=== PATIENT | female | born 1960 | race Two or more races ===

== ENCOUNTER 2018-12-06 18:27 | Emergency (ER) | payer MEDICAID ==
[~2018-12-06] VITALS: Ht 172.7 cm; Wt 78.0 kg
[2018-12-06] MEDS ORDERED: MORPHINE SULFATE 4 MG/ML CPJ (NOT FOR IM USE) IV STA (19:55)
[2018-12-06] MEDS ORDERED: SODIUM CHLORIDE 0.9% 1,000 ML IV ONE (19:55)
[2018-12-06] MEDS ORDERED: ONDANSETRON HCL 4MG/2ML INJ IV STA (19:55)
[2018-12-06 20:40] LABS: BASOPHILS % 0.1 % (0.0-2.0); EOSINOPHILS % 0.6 % (0.0-5.0); HEMATOCRIT. 38.8 % (36.0-48.0); HEMOGLOBIN. 13.6 g/dL (12.0-16.0); MEAN CORPUSCULAR HEMOGLOBIN 30.2 pg (28.0-32.0); MEAN CORPUSCULAR VOLUME 86.3 fL (81.0-99.0); MEAN PLATELET VOLUME 8.1 fl (7.4-10.4); MONOCYTES % 4.6 % (2.0-8.0); NEUTROPHILS % 85.7 % (40.0-76.0); PLATELET 175 x1000/uL (130-400); RED CELL DISTRIBUTION WIDTH 14.3 % (11.6-14.6)
[2018-12-06 20:45] LABS: CHLORIDE 106 mEq/L (98-107)
[2018-12-06 20:52] LABS: PROTHROMBIN TIME 10.6 sec (9.6-11.0)
[2018-12-06] MEDS ORDERED: IOHEXOL-300 100 ML BOTTLE ONE (21:44)
[2018-12-07 00:32] LABS: CLARITY URINE CLEAR (CLEAR); COLOR URINE YELLOW (YELLOW); KETONES URINE NEGATIVE (NEGATIVE); LEUKOCYTE ESTERASE URINE NEGATIVE (NEGATIVE); NITRITE URINE NEGATIVE (NEGATIVE); OCCULT BLOOD URINE NEGATIVE (NEGATIVE); PH URINE 6.5 (4.5-8.0); PROTEIN URINE NEGATIVE (NEGATIVE); SPECIFIC GRAVITY URINE 1.059 (1.005-1.030)
[2018-12-07 00:49] VITALS: BP 153/73
== END 2018-12-07 00:50 | disposition home or self-care (01) ==
LOC: ER 18:53
DX: R10.84 Generalized abdominal pain (principal); R11.2 Nausea with vomiting, unspecified; I10 Essential (primary) hypertension; Z98.61 Coronary angioplasty status; Z90.710 Acquired absence of both cervix and uterus; Z90.721 Acquired absence of ovaries, unilateral; Z85.3 Personal history of malignant neoplasm of breast
CPT/HCPCS: 36415; 71045; 74177; 80053; 81003; 83690; 83880; 84484; 85025; 85610; 93005; 96361; 96374; 96375; 99284; J2270; J2405; J7030; Q9967; Z7610

== ENCOUNTER 2020-03-30 11:40 | Inpatient (IN) | payer MEDICAID ==
[~2020-03-30] VITALS: Ht 160 cm; Wt 59.1 kg
[2020-03-30] MEDS ORDERED: NITROGLYCERIN 0.4MG TABLET SL SL PRN (12:00)
[2020-03-30] MEDS ORDERED: ASPIRIN 81MG TABLET PO ONE (12:00)
[2020-03-30 12:47] LABS: BASOPHILS % 0.5 % (0.0-2.0); EOSINOPHILS % 0.5 % (0.0-5.0); HEMATOCRIT. 30.7 % (36.0-48.0); HEMOGLOBIN. 10.4 g/dL (12.0-16.0); LYMPHOCYTES % 7.6 % (20.0-50.0); MEAN CORPUSCULAR HEMOGLOBIN 29.7 pg (28.0-32.0); MEAN CORPUSCULAR VOLUME 87.3 fL (81.0-99.0); MEAN PLATELET VOLUME 10.5 fl (7.4-10.4); MONOCYTES % 8.1 % (2.0-8.0); NEUTROPHILS % 83.3 % (40.0-76.0); PLATELET 218 x1000/uL (130-400); RED BLOOD CELL COUNT 3.51 mill/uL (4.2-5.4); RED CELL DISTRIBUTION WIDTH 12.7 % (11.6-14.6)
[2020-03-30 12:53] LABS: CHLORIDE 98 mEq/L (98-107)
[2020-03-30 12:56] LABS: ETHANOL BLOOD < 10 mg/dL
[2020-03-30 15:31] LABS: CLARITY URINE CLOUDY (CLEAR); COLOR URINE YELLOW (YELLOW); KETONES URINE NEGATIVE (NEGATIVE); LEUKOCYTE ESTERASE URINE TRACE (NEGATIVE); NITRITE URINE NEGATIVE (NEGATIVE); OCCULT BLOOD URINE NEGATIVE (NEGATIVE); PROTEIN URINE 3+ (NEGATIVE); SPECIFIC GRAVITY URINE 1.014 (1.005-1.030); UROBILINOGEN URINE 0.2 E.U./dL (0.2-1.0)
[2020-03-30 15:43] LABS: *AMPHETAMINES SCREEN URINE NEGATIVE (NEGATIVE); *BARBITURATES SCREEN URINE NEGATIVE (NEGATIVE)
[2020-03-30 15:44] LABS: *BENZODIAZEPINES SCREEN URINE NEGATIVE (NEGATIVE); *COCAINE SCREEN URINE NEGATIVE (NEGATIVE); CANNABINOID URINE SCREEN NEGATIVE (NEGATIVE); METHADONE URINE SCREEN NEGATIVE (NEGATIVE); OPIATES URINE SCREEN PRESUMTIVE POSITIVE (NEGATIVE); PHENCYCLIDINE URINE SCREEN NEGATIVE (NEGATIVE)
[2020-03-30] MEDS ORDERED: HYDROCODONE/ACETAMINOPHEN 5/325MG TABLET PO ONE (16:30)
[2020-03-30] MEDS: SODIUM CHLORIDE 0.9% 1,000 ML IV SCH (17:15)
[2020-03-30] MEDS ORDERED: ACETAMINOPHEN 650MG SUPP PR PRN (17:15)
[2020-03-30] MEDS ORDERED: CLONIDINE 0.1MG TABLET PO PRN (17:15)
[2020-03-30] MEDS ORDERED: NA PHOS,M-B/NA PHOS,DI-BA ENEMA 118ML PR PRN (17:15)
[2020-03-30] MEDS: FAMOTIDINE 20MG/2ML VIAL IV SCH (17:15)
[2020-03-30] MEDS ORDERED: MAGNESIUM/ALUMINUM HYDROXIDE/SIMETHICONE 30ML UDC PO PRN (17:15)
[2020-03-30] MEDS ORDERED: GUAIFENESIN 200MG/10ML SUGAR FREE UDC PO PRN (17:15)
[2020-03-30] MEDS ORDERED: ACETAMINOPHEN 325MG TABLET PO PRN (17:15)
[2020-03-30] MEDS ORDERED: CEFTRIAXONE 1 G PREMIX 50 ML IV NR (17:15)
[2020-03-30] MEDS ORDERED: DOCUSATE SODIUM 100MG CAPSULE PO PRN (17:15)
[2020-03-30] MEDS ORDERED: DEXTROSE 50% WATER 50ML SYRINGE IV PRN (17:30)
[2020-03-30] MEDS ORDERED: ALBUTEROL 6.7GM HFA INHALER ORI PRN (17:30)
[2020-03-30] MEDS: BLOOD SUGAR DIAGNOSTIC STRIP TEST SCH ×2 (17:30→21:00)
[2020-03-30] MEDS: AZITHROMYCIN 500 MG in DEXT 5% WATER 250 ML IV SCH (18:00)
[2020-03-30] MEDS ORDERED: ENOXAPARIN 30MG/0.3ML SYR SUBCUT SCH (18:00)
[2020-03-30] MEDS: INSULIN LISPRO 100 UNITS/ML SUBCUT SCH ×2 (18:20→21:00)
[2020-03-30 18:50] LABS: BG BASE EXCESS 1.2 mmol/L (-2.0-2.0); BG CARBOXYHEMOGLOBIN 0.3 % (0.5-1.5); BG DEOXYHEMOGLOBIN 12.9 % (0.0-5.0); BG FRACTION INSPIRED OXYGEN 21; BG HCO3 ACT 25.1 mmol/L (22.0-26.0); BG METHEMOGLOBIN 0.3 % (0.0-1.5); BG OXYHEMOGLOBIN 86.5 % (94.0-97.0); BG PCO2 37.3 mmHg (35.0-45.0); BG PH 7.446 (7.350-7.450); BG SAMPLE SITE RIGHT RADIAL; BG TOTAL HEMOGLOBIN 10.4 g/dL (12.0-18.0); BG VENT MODE ROOM AIR
[2020-03-30 19:51] LABS: D-DIMER 0.71 mg/L FEU (<0.50); PROTHROMBIN TIME 61.8 sec (9.6-11.0)
[2020-03-30 19:59] LABS: INR 6.5
[2020-03-30 20:08] LABS: HEPATITIS B SURFACE ANTIGEN NEGATIVE
[2020-03-30 20:37] LABS: HEPATITIS A AB IGM NEGATIVE (NEGATIVE)
[2020-03-30] MEDS ORDERED: PHYTONADIONE 10MG/ML AMP SUBCUT NR (22:00)
[2020-03-30 23:15] VITALS: BP 111/50
[2020-03-31] VITALS: BP 111/50
[2020-03-31 00:43] LABS: CREATINE KINASE 60 IU/L (26-192)
[2020-03-31 00:44] LABS: CREATINE KINASE MB FRACTION < 1.0 ng/mL (0.5-3.6)
[2020-03-31] MEDS ORDERED: ZOLP5TAB8 PO (01:33)
[2020-03-31] MEDS ORDERED: HYDR-4009 MT (01:33)
[2020-03-31] MEDS ORDERED: HYDR25TA PO (01:33)
[2020-03-31] MEDS ORDERED: ASPI-864 PO (01:33)
[2020-03-31] MEDS ORDERED: BENA20TA10 PO (01:33)
[2020-03-31] MEDS ORDERED: ATOR40TA70 PO (01:39)
[2020-03-31] MEDS ORDERED: MORP15TA67 MT (01:39)
[2020-03-31] MEDS ORDERED: TIZA4TAB5 MT (01:39)
[2020-03-31] MEDS ORDERED: EZET10TA13 PO (01:39)
[2020-03-31 04:00] VITALS: BP 106/62
[2020-03-31] MEDS ORDERED: METO25TA6 PO (04:54)
[2020-03-31] MEDS ORDERED: FAMO20TA8 PO (04:54)
[2020-03-31] MEDS ORDERED: ONDA4TAB11 PO (04:54)
[2020-03-31] MEDS ORDERED: TICA90TA PO (04:54)
[2020-03-31] MEDS: BLOOD SUGAR DIAGNOSTIC STRIP TEST SCH ×4 (06:40→20:19)
[2020-03-31 06:59] LABS: BASOPHILS % 0.4 % (0.0-2.0); EOSINOPHILS % 1.1 % (0.0-5.0); HEMATOCRIT. 27.3 % (36.0-48.0); HEMOGLOBIN. 9.3 g/dL (12.0-16.0); LYMPHOCYTES % 7.5 % (20.0-50.0); MEAN CORPUSCULAR HEMOGLOBIN 29.6 pg (28.0-32.0); MEAN CORPUSCULAR VOLUME 86.8 fL (81.0-99.0); MEAN PLATELET VOLUME 10.9 fl (7.4-10.4); MONOCYTES % 7.4 % (2.0-8.0); NEUTROPHILS % 83.6 % (40.0-76.0); PLATELET 237 x1000/uL (130-400); RED BLOOD CELL COUNT 3.15 mill/uL (4.2-5.4); RED CELL DISTRIBUTION WIDTH 12.6 % (11.6-14.6)
[2020-03-31] MEDS: INSULIN LISPRO 100 UNITS/ML SUBCUT SCH ×4 (07:10→20:20)
[2020-03-31 07:22] LABS: CHLORIDE 103 mEq/L (98-107)
[2020-03-31 07:35] LABS: CREATINE KINASE 51 IU/L (26-192); PHOSPHORUS 3.4 mg/dL (2.5-4.9); T4 FREE 1.16 ng/dL (0.76-1.46)
[2020-03-31 07:36] LABS: CREATINE KINASE MB FRACTION < 1.0 ng/mL (0.5-3.6)
[2020-03-31 07:37] LABS: LDL CHOLESTEROL 48 mg/dL (5-100)
[2020-03-31 07:38] LABS: HDL CHOLESTEROL 40 mg/dL (40-59)
[2020-03-31 07:59] LABS: INR 3.9; PROTHROMBIN TIME 38.2 sec (9.6-11.0)
[2020-03-31 08:00] VITALS: BP 105/46
[2020-03-31] MEDS: FAMOTIDINE 20MG/2ML VIAL IV SCH (08:33)
[2020-03-31] MEDS: ASPIRIN 81MG EC TABLET PO SCH (08:33)
[2020-03-31] MEDS: MORPHINE SULFATE 2 MG/ML CPJ (NOT FOR IM USE) IV PRN (08:47)
[2020-03-31] MEDS ORDERED: PHYTONADIONE 10MG/ML AMP SUBCUT NR (09:00)
[2020-03-31] MEDS: CLOPIDOGREL 75MG TABLET PO SCH (11:48)
[2020-03-31] MEDS: HYDROCODONE/ACETAMINOPHEN 5/325MG TABLET PO PRN ×3 (11:54→21:39)
[2020-03-31 12:00] VITALS: BP 120/43
[2020-03-31] MEDS: SODIUM CHLORIDE 0.9% 1,000 ML IV SCH (13:26)
[2020-03-31] MEDS: CEFTRIAXONE 1,000 MG in DEXTROSE 5% WATER 50 ML IV SCH (14:39)
[2020-03-31 16:00] VITALS: BP 138/55
[2020-03-31] MEDS: AZITHROMYCIN 500 MG in DEXT 5% WATER 250 ML IV SCH (18:00)
[2020-03-31] MEDS ORDERED: *PATIENT'S OWN MEDICATION STORAGE XX SCH (18:15)
[2020-03-31 20:12] VITALS: BP 120/72
[2020-03-31] MEDS: ATORVASTATIN CALCIUM 40MG TABLET PO SCH (20:19)
[2020-03-31] MEDS: DIPHENHYDRAMINE 25MG CAPSULE PO PRN (20:19)
[2020-03-31] MEDS: AZITHROMYCIN 250 MG in DEXT 5% WATER 250 ML IV SCH (20:57)
[2020-04-01] VITALS (7 sets, daily range): BP systolic 129–166; BP diastolic 57–71
[2020-04-01] MEDS: HYDROCODONE/ACETAMINOPHEN 5/325MG TABLET PO PRN ×4 (03:51→21:40)
[2020-04-01 06:03] LABS: BASOPHILS % 0.3 % (0.0-2.0); EOSINOPHILS % 1.7 % (0.0-5.0); HEMATOCRIT. 26.7 % (36.0-48.0); HEMOGLOBIN. 9.2 g/dL (12.0-16.0); LYMPHOCYTES % 7.5 % (20.0-50.0); MEAN CORPUSCULAR HEMOGLOBIN 29.6 pg (28.0-32.0); MEAN CORPUSCULAR VOLUME 85.9 fL (81.0-99.0); MEAN PLATELET VOLUME 9.8 fl (7.4-10.4); MONOCYTES % 6.7 % (2.0-8.0); NEUTROPHILS % 83.8 % (40.0-76.0); PLATELET 268 x1000/uL (130-400); RED CELL DISTRIBUTION WIDTH 12.4 % (11.6-14.6)
[2020-04-01 06:12] LABS: CHLORIDE 97 mEq/L (98-107)
[2020-04-01] MEDS: BLOOD SUGAR DIAGNOSTIC STRIP TEST SCH ×4 (06:12→21:40)
[2020-04-01] MEDS: INSULIN LISPRO 100 UNITS/ML SUBCUT SCH ×5 (06:12→21:43)
[2020-04-01 06:17] LABS: INR 1.3
[2020-04-01 06:19] LABS: PHOSPHORUS 2.8 mg/dL (2.5-4.9)
[2020-04-01] MEDS: LORAZEPAM 0.5MG TABLET PO PRN (08:47)
[2020-04-01] MEDS: ASPIRIN 81MG EC TABLET PO SCH (08:47)
[2020-04-01] MEDS: FAMOTIDINE 20MG/2ML VIAL IV SCH (08:47)
[2020-04-01] MEDS: CLOPIDOGREL 75MG TABLET PO SCH (08:47)
[2020-04-01] MEDS: SODIUM CHLORIDE 0.9% 1,000 ML IV SCH (08:48)
[2020-04-01] MEDS ORDERED: LACTULOSE 20G/30ML UDC PO NR (12:30)
[2020-04-01] MEDS: CEFTRIAXONE 1,000 MG in DEXTROSE 5% WATER 50 ML IV SCH (13:37)
[2020-04-01] MEDS: DOCUSATE SODIUM 250MG CAPSULE PO SCH (13:37)
[2020-04-01] MEDS: ENOXAPARIN 40MG/0.4ML SYR SUBCUT SCH (14:58)
[2020-04-01] MEDS: ATORVASTATIN CALCIUM 40MG TABLET PO SCH (21:39)
[2020-04-01] MEDS: METOPROLOL TARTRATE 25MG TABLET PO SCH (21:39)
[2020-04-01] MEDS: AZITHROMYCIN 250 MG in DEXT 5% WATER 250 ML IV SCH (21:47)
[2020-04-02] VITALS (21 sets, daily range): BP systolic 121–179; BP diastolic 52–122
[2020-04-02] MEDS: HYDROCODONE/ACETAMINOPHEN 5/325MG TABLET PO PRN (03:07)
[2020-04-02 05:11] LABS: MICROALBUMIN RANDOM URINE 114.3 ug/mL (Not Estab.)
[2020-04-02] MEDS: BLOOD SUGAR DIAGNOSTIC STRIP TEST SCH ×4 (06:11→20:36)
[2020-04-02] MEDS: INSULIN LISPRO 100 UNITS/ML SUBCUT SCH ×4 (06:11→20:35)
[2020-04-02 06:15] LABS: HEMATOCRIT. 25.5 % (36.0-48.0); HEMOGLOBIN. 8.8 g/dL (12.0-16.0); MEAN CORPUSCULAR HEMOGLOBIN 29.9 pg (28.0-32.0); MEAN CORPUSCULAR VOLUME 86.7 fL (81.0-99.0); MEAN PLATELET VOLUME 9.9 fl (7.4-10.4); PLATELET 313 x1000/uL (130-400); RED BLOOD CELL COUNT 2.94 mill/uL (4.2-5.4); RED CELL DISTRIBUTION WIDTH 12.4 % (11.6-14.6)
[2020-04-02 06:28] LABS: INR 1.1; PROTHROMBIN TIME 11.9 sec (9.6-11.0)
[2020-04-02 08:18] LABS: CHLORIDE 99 mEq/L (98-107)
[2020-04-02 08:24] LABS: PHOSPHORUS 3.3 mg/dL (2.5-4.9)
[2020-04-02] MEDS: DOCUSATE SODIUM 250MG CAPSULE PO SCH (08:38)
[2020-04-02] MEDS: ASPIRIN 81MG EC TABLET PO SCH (08:38)
[2020-04-02] MEDS: ENOXAPARIN 40MG/0.4ML SYR SUBCUT SCH (08:39)
[2020-04-02] MEDS: CLOPIDOGREL 75MG TABLET PO SCH (08:39)
[2020-04-02] MEDS: FAMOTIDINE 20MG/2ML VIAL IV SCH (08:39)
[2020-04-02] MEDS: METOPROLOL TARTRATE 25MG TABLET PO SCH ×2 (08:40→20:32)
[2020-04-02] MEDS ORDERED: KETOROLAC 15MG/ML VIAL IV NR (11:00)
[2020-04-02] MEDS ORDERED: IPRATROPIUM/ALBUTEROL 0.5-3(2.5)MG/3ML NEB HHN NR (11:30)
[2020-04-02] MEDS ORDERED: NITROGLYCERIN OINT 1GM/INCH UDPKT TD NR (11:30)
[2020-04-02] MEDS ORDERED: FUROSEMIDE 40MG/4ML VIAL IVP NR ×3 (11:56→14:15)
[2020-04-02] MEDS: METHYLPREDNISOLONE SOD SUCC 40 MG/ML VIAL IV SCH ×2 (12:20→23:40)
[2020-04-02 12:33] LABS: PLATELET ESTIMATE NORMAL
[2020-04-02] MEDS ORDERED: POTASSIUM CHLORIDE 20MEQ TABLET SR PO NR ×3 (13:00→14:15)
[2020-04-02] MEDS ORDERED: POTASSIUM CHLORIDE INJ 40 MEQ in DEXT 5% WATER 250 ML IV SCH (13:00)
[2020-04-02 13:32] LABS: BG CARBOXYHEMOGLOBIN 0.3 % (0.5-1.5); BG DEOXYHEMOGLOBIN 14.9 % (0.0-5.0); BG FRACTION INSPIRED OXYGEN 40; BG HCO3 ACT 24.4 mmol/L (22.0-26.0); BG METHEMOGLOBIN 0.1 % (0.0-1.5); BG OXYHEMOGLOBIN 84.7 % (94.0-97.0); BG PCO2 34.2 mmHg (35.0-45.0); BG PH 7.471 (7.350-7.450); BG PO2 47.7 mmHg (75.0-100.0); BG SAMPLE SITE RIGHT RADIAL; BG TOTAL HEMOGLOBIN 9.5 g/dL (12.0-18.0); BG VENT MODE NASAL CANNULA
[2020-04-02] MEDS: CEFTRIAXONE 1,000 MG in DEXTROSE 5% WATER 50 ML IV SCH (14:20)
[2020-04-02 17:37] LABS: BG BASE EXCESS 1.6 mmol/L (-2.0-2.0); BG CARBOXYHEMOGLOBIN 0.3 % (0.5-1.5); BG DEOXYHEMOGLOBIN 6.6 % (0.0-5.0); BG FRACTION INSPIRED OXYGEN 100; BG HCO3 ACT 24.7 mmol/L (22.0-26.0); BG METHEMOGLOBIN 0.2 % (0.0-1.5); BG OXYGEN SATURATION 93.4 % (92.0-98.5); BG OXYHEMOGLOBIN 92.9 % (94.0-97.0); BG PCO2 33.3 mmHg (35.0-45.0); BG PH 7.488 (7.350-7.450); BG PO2 66.2 mmHg (75.0-100.0); BG SAMPLE SITE RIGHT RADIAL; BG TOTAL HEMOGLOBIN 10.2 g/dL (12.0-18.0); BG VENT MODE MASK - NRB
[2020-04-02 18:50] LABS: CREATINE KINASE 30 IU/L (26-192)
[2020-04-02 18:52] LABS: CREATINE KINASE MB FRACTION < 1.0 ng/mL (0.5-3.6)
[2020-04-02] MEDS: NITROGLYCERIN OINT 1GM/INCH UDPKT TD SCH (20:31)
[2020-04-02] MEDS: ATORVASTATIN CALCIUM 40MG TABLET PO SCH (20:32)
[2020-04-02] MEDS: MORPHINE SULFATE 2 MG/ML CPJ (NOT FOR IM USE) IV PRN ×2 (20:36→23:38)
[2020-04-02] MEDS: IPRATROPIUM/ALBUTEROL 0.5-3(2.5)MG/3ML NEB HHN SCH (20:51)
[2020-04-02] MEDS: AZITHROMYCIN 250 MG in DEXT 5% WATER 250 ML IV SCH (23:36)
[2020-04-03] VITALS (38 sets, daily range): BP systolic 119–185; BP diastolic 64–124
[2020-04-03] MEDS: IPRATROPIUM/ALBUTEROL 0.5-3(2.5)MG/3ML NEB HHN SCH ×4 (02:04→21:41)
[2020-04-03] MEDS: HYDROCODONE/ACETAMINOPHEN 5/325MG TABLET PO PRN ×3 (03:52→05:39)
[2020-04-03] MEDS: METHYLPREDNISOLONE SOD SUCC 40 MG/ML VIAL IV SCH ×2 (05:41→12:53)
[2020-04-03 06:04] LABS: CHLORIDE 102 mEq/L (98-107)
[2020-04-03 06:14] LABS: PHOSPHORUS 2.7 mg/dL (2.5-4.9)
[2020-04-03 06:37] LABS: HEMATOCRIT. 24.6 % (36.0-48.0); HEMOGLOBIN. 8.4 g/dL (12.0-16.0); MEAN CORPUSCULAR HEMOGLOBIN 29.2 pg (28.0-32.0); MEAN CORPUSCULAR VOLUME 86.1 fL (81.0-99.0); PLATELET 282 x1000/uL (130-400); RED BLOOD CELL COUNT 2.86 mill/uL (4.2-5.4); RED CELL DISTRIBUTION WIDTH 12.5 % (11.6-14.6)
[2020-04-03] MEDS: INSULIN LISPRO 100 UNITS/ML SUBCUT SCH ×4 (08:20→21:57)
[2020-04-03] MEDS: BLOOD SUGAR DIAGNOSTIC STRIP TEST SCH ×4 (08:30→21:00)
[2020-04-03] MEDS: NITROGLYCERIN OINT 1GM/INCH UDPKT TD SCH ×3 (08:37→21:38)
[2020-04-03] MEDS: DOCUSATE SODIUM 250MG CAPSULE PO SCH (09:43)
[2020-04-03] MEDS: ENOXAPARIN 40MG/0.4ML SYR SUBCUT SCH (09:44)
[2020-04-03] MEDS: METOPROLOL TARTRATE 25MG TABLET PO SCH ×2 (09:45→21:37)
[2020-04-03] MEDS: FUROSEMIDE 40MG/4ML VIAL IVP SCH ×2 (09:45→18:34)
[2020-04-03] MEDS: CLOPIDOGREL 75MG TABLET PO SCH (09:46)
[2020-04-03] MEDS: FAMOTIDINE 20MG/2ML VIAL IV SCH (09:48)
[2020-04-03] MEDS: ASPIRIN 81MG EC TABLET PO SCH (09:51)
[2020-04-03 10:59] LABS: BG BASE EXCESS 2.8 mmol/L (-2.0-2.0); BG CARBOXYHEMOGLOBIN 0.3 % (0.5-1.5); BG DEOXYHEMOGLOBIN 5.3 % (0.0-5.0); BG HCO3 ACT 26.2 mmol/L (22.0-26.0); BG OXYHEMOGLOBIN 94.4 % (94.0-97.0); BG PCO2 36.3 mmHg (35.0-45.0); BG PH 7.476 (7.350-7.450); BG PO2 74.3 mmHg (75.0-100.0); BG SAMPLE SITE RIGHT RADIAL; BG TOTAL HEMOGLOBIN 11.1 g/dL (12.0-18.0); BG VENT MODE NASAL CANNULA
[2020-04-03 13:10] LABS: PLATELET ESTIMATE NORMAL
[2020-04-03] MEDS: PIPERACILLIN/TAZOBACTAM 3.375 G in DEXT 5% WATER 100 ML IV SCH ×2 (15:06→21:38)
[2020-04-03] MEDS: MORPHINE SULFATE 2 MG/ML CPJ (NOT FOR IM USE) IV PRN (19:54)
[2020-04-03] MEDS: ATORVASTATIN CALCIUM 40MG TABLET PO SCH (21:37)
[2020-04-03] MEDS: LORAZEPAM 0.5MG TABLET PO PRN (21:37)
[2020-04-04] VITALS (25 sets, daily range): BP systolic 102–186; BP diastolic 62–88
[2020-04-04] MEDS: METHYLPREDNISOLONE SOD SUCC 40 MG/ML VIAL IV SCH ×2 (00:01→13:15)
[2020-04-04] MEDS: IPRATROPIUM/ALBUTEROL 0.5-3(2.5)MG/3ML NEB HHN SCH ×4 (02:18→20:07)
[2020-04-04] MEDS: PIPERACILLIN/TAZOBACTAM 3.375 G in DEXT 5% WATER 100 ML IV SCH ×4 (03:22→20:30)
[2020-04-04] MEDS: NITROGLYCERIN OINT 1GM/INCH UDPKT TD SCH ×3 (05:56→22:52)
[2020-04-04 06:56] LABS: CHLORIDE 103 mEq/L (98-107)
[2020-04-04 07:01] LABS: HEMATOCRIT. 23.9 % (36.0-48.0); HEMOGLOBIN. 8.2 g/dL (12.0-16.0); MEAN CORPUSCULAR HEMOGLOBIN 29.3 pg (28.0-32.0); MEAN CORPUSCULAR VOLUME 85.9 fL (81.0-99.0); PLATELET 318 x1000/uL (130-400); RED BLOOD CELL COUNT 2.79 mill/uL (4.2-5.4); RED CELL DISTRIBUTION WIDTH 12.3 % (11.6-14.6)
[2020-04-04 07:07] LABS: PHOSPHORUS 3.4 mg/dL (2.5-4.9)
[2020-04-04] MEDS: BLOOD SUGAR DIAGNOSTIC STRIP TEST SCH ×4 (08:07→20:34)
[2020-04-04] MEDS: INSULIN LISPRO 100 UNITS/ML SUBCUT SCH ×4 (08:49→20:38)
[2020-04-04] MEDS ORDERED: METOLAZONE 2.5MG TABLET PO NR (10:15)
[2020-04-04] MEDS ORDERED: POTASSIUM CHLORIDE 20MEQ TABLET SR PO NR (10:15)
[2020-04-04] MEDS: DOCUSATE SODIUM 250MG CAPSULE PO SCH (10:34)
[2020-04-04] MEDS: FAMOTIDINE 20MG/2ML VIAL IV SCH (10:34)
[2020-04-04] MEDS: FUROSEMIDE 40MG/4ML VIAL IVP SCH ×2 (10:34→16:23)
[2020-04-04] MEDS: ASPIRIN 81MG EC TABLET PO SCH (10:34)
[2020-04-04] MEDS: METOPROLOL TARTRATE 25MG TABLET PO SCH ×2 (10:35→20:31)
[2020-04-04] MEDS: ENOXAPARIN 40MG/0.4ML SYR SUBCUT SCH (10:48)
[2020-04-04] MEDS: HYDROCODONE/ACETAMINOPHEN 5/325MG TABLET PO PRN (11:04)
[2020-04-04] MEDS: CLOPIDOGREL 75MG TABLET PO SCH (11:05)
[2020-04-04] MEDS ORDERED: LIDOCAINE HCL 1% 20ML VIAL (Pyxis) INJ ONE (14:15)
[2020-04-04] MEDS ORDERED: SODIUM BICARBONATE 4% (2.4MEQ) 5ML VIAL IV ONE (14:15)
[2020-04-04] MEDS ORDERED: IOHEXOL-300 50 ML BOTTLE IV ONE ×2 (14:15→14:17)
[2020-04-04] MEDS ORDERED: FENTANYL CITRATE/PF 50MCG/ML 2ML VIAL ONE (14:48)
[2020-04-04] MEDS ORDERED: FENTANYL CITRATE/PF 50MCG/ML 2ML VIAL IV NR (14:48)
[2020-04-04 17:23] LABS: PLATELET ESTIMATE NORMAL
[2020-04-04 18:01] LABS: HEMATOCRIT 25.4 % (36.0-48.0); HEMOGLOBIN 8.6 g/dL (12.0-16.0); PLATELET 344 x1000/uL (130-400); RED BLOOD CELL COUNT 2.95 mill/uL (4.2-5.4); RED CELL DISTRIBUTION WIDTH 12.4 % (11.6-14.6)
[2020-04-04] MEDS: ATORVASTATIN CALCIUM 40MG TABLET PO SCH (20:31)
[2020-04-04] MEDS: MORPHINE SULFATE 2 MG/ML CPJ (NOT FOR IM USE) IV PRN (22:59)
[2020-04-05] VITALS (10 sets, daily range): BP systolic 125–159; BP diastolic 65–97
[2020-04-05] MEDS: IPRATROPIUM/ALBUTEROL 0.5-3(2.5)MG/3ML NEB HHN SCH ×4 (02:07→20:00)
[2020-04-05] MEDS: PIPERACILLIN/TAZOBACTAM 3.375 G in DEXT 5% WATER 100 ML IV SCH ×4 (02:09→22:40)
[2020-04-05] MEDS: MORPHINE SULFATE 2 MG/ML CPJ (NOT FOR IM USE) IV PRN ×4 (02:41→18:32)
[2020-04-05 03:43] LABS: HEMATOCRIT 24.8 % (36.0-48.0); HEMOGLOBIN 8.3 g/dL (12.0-16.0)
[2020-04-05] MEDS: NITROGLYCERIN OINT 1GM/INCH UDPKT TD SCH ×3 (05:46→22:41)
[2020-04-05 06:29] LABS: HEMATOCRIT 24.3 % (36.0-48.0); HEMOGLOBIN 8.3 g/dL (12.0-16.0)
[2020-04-05] MEDS: BLOOD SUGAR DIAGNOSTIC STRIP TEST SCH ×4 (08:21→21:00)
[2020-04-05] MEDS: INSULIN LISPRO 100 UNITS/ML SUBCUT SCH ×4 (08:35→22:49)
[2020-04-05] MEDS ORDERED: METHYLPREDNISOLONE SOD SUCC 40 MG/ML VIAL IV SCH (09:00)
[2020-04-05] MEDS: FUROSEMIDE 40MG/4ML VIAL IVP SCH ×2 (09:59→17:45)
[2020-04-05] MEDS: METOPROLOL TARTRATE 25MG TABLET PO SCH ×2 (09:59→22:52)
[2020-04-05] MEDS: FAMOTIDINE 20MG/2ML VIAL IV SCH (10:00)
[2020-04-05] MEDS: DOCUSATE SODIUM 250MG CAPSULE PO SCH (10:00)
[2020-04-05] MEDS: ASPIRIN 81MG EC TABLET PO SCH (10:00)
[2020-04-05] MEDS: CLOPIDOGREL 75MG TABLET PO SCH (10:00)
[2020-04-05 11:02] LABS: BASOPHILS % 0.1 % (0.0-2.0); EOSINOPHILS % 0.1 % (0.0-5.0); HEMATOCRIT. 32.1 % (36.0-48.0); HEMOGLOBIN. 10.8 g/dL (12.0-16.0); LYMPHOCYTES % 8.9 % (20.0-50.0); MEAN CORPUSCULAR HEMOGLOBIN 29.4 pg (28.0-32.0); MEAN CORPUSCULAR VOLUME 87.3 fL (81.0-99.0); MEAN PLATELET VOLUME 8.5 fl (7.4-10.4); MONOCYTES % 6.9 % (2.0-8.0); PLATELET 400 x1000/uL (130-400); RED BLOOD CELL COUNT 3.68 mill/uL (4.2-5.4); RED CELL DISTRIBUTION WIDTH 12.5 % (11.6-14.6)
[2020-04-05 11:18] LABS: CHLORIDE 101 mEq/L (98-107)
[2020-04-05] MEDS ORDERED: POTASSIUM CHLORIDE 20MEQ TABLET SR PO NR (12:00)
[2020-04-05 19:02] LABS: HEMATOCRIT 33.5 % (36.0-48.0); HEMOGLOBIN 11.4 g/dL (12.0-16.0)
[2020-04-05] MEDS: ALBUTEROL (0.083%) 2.5MG/3ML NEB HHN PRN (20:20)
[2020-04-05] MEDS: DIPHENHYDRAMINE 50MG/ML VIAL IV PRN (22:40)
[2020-04-05] MEDS: ATORVASTATIN CALCIUM 40MG TABLET PO SCH (22:50)
[2020-04-05] MEDS: ONDANSETRON HCL 4MG/2ML INJ IV PRN (23:09)
[2020-04-06] VITALS (10 sets, daily range): BP systolic 115–145; BP diastolic 62–78
[2020-04-06] MEDS: IPRATROPIUM/ALBUTEROL 0.5-3(2.5)MG/3ML NEB HHN SCH ×4 (00:12→20:16)
[2020-04-06] MEDS: PIPERACILLIN/TAZOBACTAM 3.375 G in DEXT 5% WATER 100 ML IV SCH ×4 (02:05→20:25)
[2020-04-06] MEDS: NITROGLYCERIN OINT 1GM/INCH UDPKT TD SCH ×3 (05:28→21:25)
[2020-04-06] MEDS: MORPHINE SULFATE 2 MG/ML CPJ (NOT FOR IM USE) IV PRN ×4 (05:29→21:26)
[2020-04-06] MEDS: BLOOD SUGAR DIAGNOSTIC STRIP TEST SCH ×4 (07:30→20:18)
[2020-04-06 07:35] LABS: BASOPHILS % 0.1 % (0.0-2.0); EOSINOPHILS % 0.5 % (0.0-5.0); HEMATOCRIT. 30.7 % (36.0-48.0); HEMOGLOBIN. 10.5 g/dL (12.0-16.0); LYMPHOCYTES % 11.7 % (20.0-50.0); MEAN CORPUSCULAR HEMOGLOBIN 29.5 pg (28.0-32.0); MEAN PLATELET VOLUME 8.4 fl (7.4-10.4); MONOCYTES % 8.8 % (2.0-8.0); NEUTROPHILS % 78.9 % (40.0-76.0); RED BLOOD CELL COUNT 3.57 mill/uL (4.2-5.4); RED CELL DISTRIBUTION WIDTH 12.3 % (11.6-14.6)
[2020-04-06 08:01] LABS: CHLORIDE 101 mEq/L (98-107)
[2020-04-06] MEDS: DOCUSATE SODIUM 250MG CAPSULE PO SCH (08:47)
[2020-04-06] MEDS: FUROSEMIDE 40MG/4ML VIAL IVP SCH ×2 (08:48→15:57)
[2020-04-06] MEDS: FAMOTIDINE 20MG/2ML VIAL IV SCH (08:48)
[2020-04-06] MEDS: ASPIRIN 81MG EC TABLET PO SCH (08:49)
[2020-04-06 08:51] LABS: PLATELET 379 x1000/uL (130-400)
[2020-04-06] MEDS: METOPROLOL TARTRATE 25MG TABLET PO SCH ×2 (08:53→20:18)
[2020-04-06] MEDS: CLOPIDOGREL 75MG TABLET PO SCH (08:53)
[2020-04-06] MEDS: INSULIN LISPRO 100 UNITS/ML SUBCUT SCH ×4 (09:20→20:27)
[2020-04-06] MEDS: ONDANSETRON HCL 4MG/2ML INJ IV PRN (14:47)
[2020-04-06] MEDS ORDERED: POTASSIUM CHLORIDE 20MEQ TABLET SR PO NR (15:00)
[2020-04-06] MEDS: DIPHENHYDRAMINE 50MG/ML VIAL IV PRN (16:33)
[2020-04-06] MEDS: ATORVASTATIN CALCIUM 40MG TABLET PO SCH (20:17)
[2020-04-07] VITALS (7 sets, daily range): BP systolic 102–127; BP diastolic 54–77
[2020-04-07] MEDS: MORPHINE SULFATE 2 MG/ML CPJ (NOT FOR IM USE) IV PRN ×3 (01:41→18:42)
[2020-04-07] MEDS: IPRATROPIUM/ALBUTEROL 0.5-3(2.5)MG/3ML NEB HHN SCH ×3 (02:13→21:02)
[2020-04-07] MEDS: PIPERACILLIN/TAZOBACTAM 3.375 G in DEXT 5% WATER 100 ML IV SCH ×4 (02:58→20:36)
[2020-04-07] MEDS: NITROGLYCERIN OINT 1GM/INCH UDPKT TD SCH ×3 (05:24→21:13)
[2020-04-07 05:57] LABS: BASOPHILS % 0.2 % (0.0-2.0); EOSINOPHILS % 2.1 % (0.0-5.0); HEMATOCRIT. 31.5 % (36.0-48.0); HEMOGLOBIN. 10.7 g/dL (12.0-16.0); MEAN CORPUSCULAR VOLUME 85.1 fL (81.0-99.0); MEAN PLATELET VOLUME 8.4 fl (7.4-10.4); MONOCYTES % 8.8 % (2.0-8.0); NEUTROPHILS % 76.9 % (40.0-76.0); PLATELET 411 x1000/uL (130-400); RED CELL DISTRIBUTION WIDTH 12.4 % (11.6-14.6)
[2020-04-07 06:57] LABS: CHLORIDE 99 mEq/L (98-107)
[2020-04-07] MEDS: BLOOD SUGAR DIAGNOSTIC STRIP TEST SCH ×4 (07:23→20:38)
[2020-04-07] MEDS ORDERED: POTASSIUM CHLORIDE 20MEQ TABLET SR PO NR (08:00)
[2020-04-07] MEDS: CLOPIDOGREL 75MG TABLET PO SCH (08:51)
[2020-04-07] MEDS: DOCUSATE SODIUM 250MG CAPSULE PO SCH (08:51)
[2020-04-07] MEDS: FUROSEMIDE 40MG/4ML VIAL IVP SCH ×2 (08:52→18:07)
[2020-04-07] MEDS: ASPIRIN 81MG EC TABLET PO SCH (08:53)
[2020-04-07] MEDS: FAMOTIDINE 20MG/2ML VIAL IV SCH (08:53)
[2020-04-07] MEDS: METOPROLOL TARTRATE 25MG TABLET PO SCH ×2 (08:54→20:36)
[2020-04-07] MEDS: INSULIN LISPRO 100 UNITS/ML SUBCUT SCH ×4 (08:56→20:38)
[2020-04-07] MEDS: ALBUTEROL (0.083%) 2.5MG/3ML NEB HHN PRN (14:19)
[2020-04-07] MEDS: ATORVASTATIN CALCIUM 40MG TABLET PO SCH (20:36)
[2020-04-08] VITALS (8 sets, daily range): BP systolic 96–130; BP diastolic 54–65
[2020-04-08] MEDS: ONDANSETRON HCL 4MG/2ML INJ IV PRN (00:22)
[2020-04-08] MEDS: MORPHINE SULFATE 2 MG/ML CPJ (NOT FOR IM USE) IV PRN ×4 (00:29→23:07)
[2020-04-08] MEDS: PIPERACILLIN/TAZOBACTAM 3.375 G in DEXT 5% WATER 100 ML IV SCH ×2 (02:08→08:53)
[2020-04-08] MEDS: IPRATROPIUM/ALBUTEROL 0.5-3(2.5)MG/3ML NEB HHN SCH ×4 (02:55→20:39)
[2020-04-08] MEDS: NITROGLYCERIN OINT 1GM/INCH UDPKT TD SCH ×3 (06:00→21:56)
[2020-04-08 06:43] LABS: BASOPHILS % 0.2 % (0.0-2.0); EOSINOPHILS % 2.1 % (0.0-5.0); HEMATOCRIT. 30.3 % (36.0-48.0); HEMOGLOBIN. 10.5 g/dL (12.0-16.0); LYMPHOCYTES % 9.1 % (20.0-50.0); MEAN CORPUSCULAR HEMOGLOBIN 29.2 pg (28.0-32.0); MEAN CORPUSCULAR VOLUME 84.2 fL (81.0-99.0); MEAN PLATELET VOLUME 8.4 fl (7.4-10.4); MONOCYTES % 6.9 % (2.0-8.0); NEUTROPHILS % 81.7 % (40.0-76.0); PLATELET 407 x1000/uL (130-400); RED CELL DISTRIBUTION WIDTH 12.4 % (11.6-14.6)
[2020-04-08 06:46] LABS: CHLORIDE 100 mEq/L (98-107)
[2020-04-08] MEDS: BLOOD SUGAR DIAGNOSTIC STRIP TEST SCH ×4 (07:30→20:48)
[2020-04-08] MEDS: FAMOTIDINE 20MG/2ML VIAL IV SCH (08:51)
[2020-04-08] MEDS: METOPROLOL TARTRATE 25MG TABLET PO SCH ×2 (08:52→20:48)
[2020-04-08] MEDS: DOCUSATE SODIUM 250MG CAPSULE PO SCH (08:52)
[2020-04-08] MEDS: CLOPIDOGREL 75MG TABLET PO SCH (08:52)
[2020-04-08] MEDS: FUROSEMIDE 40MG/4ML VIAL IVP SCH ×2 (08:52→18:49)
[2020-04-08] MEDS: INSULIN LISPRO 100 UNITS/ML SUBCUT SCH ×4 (08:53→20:48)
[2020-04-08] MEDS: ASPIRIN 81MG EC TABLET PO SCH (08:55)
[2020-04-08] MEDS: ATORVASTATIN CALCIUM 40MG TABLET PO SCH (20:48)
[2020-04-08] MEDS: DIPHENHYDRAMINE 25MG CAPSULE PO PRN (21:56)
[2020-04-09] VITALS: BP 97/35
[2020-04-09] MEDS: IPRATROPIUM/ALBUTEROL 0.5-3(2.5)MG/3ML NEB HHN SCH ×3 (01:19→14:02)
[2020-04-09 04:00] VITALS: BP 100/55
[2020-04-09] MEDS: DIPHENHYDRAMINE 50MG/ML VIAL IV PRN (04:17)
[2020-04-09] MEDS: MORPHINE SULFATE 2 MG/ML CPJ (NOT FOR IM USE) IV PRN ×3 (04:34→17:16)
[2020-04-09] MEDS: NITROGLYCERIN OINT 1GM/INCH UDPKT TD SCH ×2 (05:55→13:36)
[2020-04-09 07:02] LABS: BASOPHILS % 0.3 % (0.0-2.0); EOSINOPHILS % 3.6 % (0.0-5.0); HEMATOCRIT. 29.7 % (36.0-48.0); HEMOGLOBIN. 10.3 g/dL (12.0-16.0); LYMPHOCYTES % 13.6 % (20.0-50.0); MEAN CORPUSCULAR VOLUME 83.4 fL (81.0-99.0); MEAN PLATELET VOLUME 8.5 fl (7.4-10.4); MONOCYTES % 7.3 % (2.0-8.0); NEUTROPHILS % 75.2 % (40.0-76.0); PLATELET 411 x1000/uL (130-400); RED BLOOD CELL COUNT 3.57 mill/uL (4.2-5.4); RED CELL DISTRIBUTION WIDTH 12.4 % (11.6-14.6)
[2020-04-09 07:09] LABS: CHLORIDE 94 mEq/L (98-107)
[2020-04-09 08:00] VITALS: BP 124/56
[2020-04-09] MEDS: INSULIN LISPRO 100 UNITS/ML SUBCUT SCH ×2 (08:00→12:51)
[2020-04-09] MEDS: BLOOD SUGAR DIAGNOSTIC STRIP TEST SCH ×3 (08:28→17:12)
[2020-04-09] MEDS: CLOPIDOGREL 75MG TABLET PO SCH (08:28)
[2020-04-09] MEDS: ASPIRIN 81MG EC TABLET PO SCH (08:29)
[2020-04-09] MEDS: DOCUSATE SODIUM 250MG CAPSULE PO SCH (08:29)
[2020-04-09] MEDS: FAMOTIDINE 20MG/2ML VIAL IV SCH (08:29)
[2020-04-09] MEDS: FUROSEMIDE 40MG/4ML VIAL IVP SCH ×2 (08:29→16:35)
[2020-04-09] MEDS: METOPROLOL TARTRATE 25MG TABLET PO SCH (08:29)
[2020-04-09 12:00] VITALS: BP 109/48
[2020-04-09] MEDS ORDERED: AMOXICILLIN/POTASSIUM CLAVULANATE 500/125MG TAB PO SCH (15:30)
[2020-04-09 15:45] VITALS: BP 110/54
[2020-04-09 17:18] VITALS: BP 120/56
[2020-04-10] MEDS ORDERED: TICAGRELOR 90 MG TABLET PO SCH (09:00)
== END 2020-04-09 18:17 | disposition home health service (06) | DRG 720 ==
LOC: ER 11:40 → EDBEDREQ 13:49 → EDBEDREQTM 13:49 → 7EST 16:04 → SUPCPDRO 16:05 → EDBEDREQ 16:15 → ENRESERV 21:43 → 5WST 04-01 12:02 → CVICU 04-02 16:45 → 5EST 04-03 17:15
PROVIDERS: ADMIT Internal Medicine; ATTEND Internal Medicine
PROC: 05HY33Z Insertion of Infusion Device into Upper Vein, Percutaneous Approach (ICD-10-PCS; 2020-04-02)
PROC: B54MZZA Ultrasonography of Right Upper Extremity Veins, Guidance (ICD-10-PCS; 2020-04-02)
PROC: 0F943ZZ Drainage of Gallbladder, Percutaneous Approach (ICD-10-PCS; principal; 2020-04-04)
DX: A41.9 Sepsis, unspecified organism (principal); J45.901 Unspecified asthma with (acute) exacerbation; K59.00 Constipation, unspecified; N17.9 Acute kidney failure, unspecified; N39.0 Urinary tract infection, site not specified; Z20.828 Contact with and (suspected) exposure to other viral communicable diseases; D17.71 Benign lipomatous neoplasm of kidney; D64.9 Anemia, unspecified; D68.9 Coagulation defect, unspecified; D72.810 Lymphocytopenia; E78.5 Hyperlipidemia, unspecified; E87.1 Hypo-osmolality and hyponatremia; I11.9 Hypertensive heart disease without heart failure; I25.110 Atherosclerotic heart disease of native coronary artery with unstable angina pectoris; J18.9 Pneumonia, unspecified organism; E87.6 Hypokalemia; I31.3 Pericardial effusion (noninflammatory); K80.10 Calculus of gallbladder with chronic cholecystitis without obstruction; R80.9 Proteinuria, unspecified; R74.01 Elevation of levels of liver transaminase levels; M54.9 Dorsalgia, unspecified; E66.01 Morbid (severe) obesity due to excess calories; J96.01 Acute respiratory failure with hypoxia; R73.9 Hyperglycemia, unspecified; E04.2 Nontoxic multinodular goiter; K80.00 Calculus of gallbladder with acute cholecystitis without obstruction; I11.0 Hypertensive heart disease with heart failure; I50.9 Heart failure, unspecified; Z95.5 Presence of coronary angioplasty implant and graft; Z90.710 Acquired absence of both cervix and uterus; Z79.891 Long term (current) use of opiate analgesic; Z79.82 Long term (current) use of aspirin; Z79.899 Other long term (current) drug therapy; Z90.12 Acquired absence of left breast and nipple; Z85.3 Personal history of malignant neoplasm of breast; Z68.23 Body mass index [BMI] 23.0-23.9, adult; Z98.82 Breast implant status
CPT/HCPCS: 36415; 36600; 47490; 70490; 71045; 71275; 76604; 76700; 76937; 78227; 80048; 80053; 80061; 80305; 80320; 81003; 82043; 82375; 82550; 82553; 82570; 82728; 82805; 82962; 83036; 83605; 83615; 83735; 83880; 83935; 84100; 84132; 84145; 84300; 84439; 84443; 84484; 85014; 85018; 85025; 85027; 85379; 85651; 86038; 86141; 86300; 86705; 86709; 86803; 86850; 86900; 86920; 87340; 87635; 93005; 93306; 93308; 93970; 99152; 99153; 99291; A6261; A9537; C1725; C1729; C1893; J0456; J0696; J1200; J1650; J1815; J1885; J1940; J2270; J2405; J2543; J2920; J3010; J3430; J3480; J3490; J7040; J7060; Q0163; Q9967; G0480; G0500

== ENCOUNTER 2020-04-29 02:29 | Inpatient (IN) | payer MEDICAID ==
[~2020-04-29] VITALS: Ht 157.5 cm; Wt 59.0 kg
[~2020-04-29 02:29] MED LIST: ASPI-864 PO; ATOR40TA70 PO; BENA20TA10 PO; EZET10TA13 PO; FAMO20TA8 PO; HYDR-4009 MT; HYDR25TA PO; METO25TA6 PO; MORP15TA67 MT; ONDA4TAB11 PO; TICA90TA PO; TIZA4TAB5 MT; ZOLP5TAB8 PO
[2020-04-29] MEDS ORDERED: MORPHINE SULFATE 4 MG/ML CPJ (NOT FOR IM USE) IV SCH (02:57)
[2020-04-29 05:47] LABS: BASOPHILS % 0.9 % (0.0-2.0); EOSINOPHILS % 6.2 % (0.0-5.0); HEMATOCRIT. 35.6 % (36.0-48.0); HEMOGLOBIN. 12.3 g/dL (12.0-16.0); LYMPHOCYTES % 26.6 % (20.0-50.0); MEAN CORPUSCULAR HEMOGLOBIN 28.5 pg (28.0-32.0); MEAN CORPUSCULAR VOLUME 82.1 fL (81.0-99.0); MEAN PLATELET VOLUME 8.5 fl (7.4-10.4); MONOCYTES % 7.5 % (2.0-8.0); NEUTROPHILS % 58.8 % (40.0-76.0); PLATELET 297 x1000/uL (130-400); RED BLOOD CELL COUNT 4.33 mill/uL (4.2-5.4); RED CELL DISTRIBUTION WIDTH 12.9 % (11.6-14.6)
[2020-04-29 05:55] LABS: CHLORIDE 92 mEq/L (98-107)
[2020-04-29 06:09] LABS: PROTHROMBIN TIME 10.9 sec (9.6-11.0)
[2020-04-29] MEDS ORDERED: KCL 20MEQ/100ML PREMIX 100 ML IV NR (07:45)
[2020-04-29] MEDS: PIPERACILLIN/TAZOBACTAM 3.375GM/50ML PREMIX IV SCH ×2 (09:53→11:54)
[2020-04-29] MEDS ORDERED: POTASSIUM CHLORIDE 20MEQ TABLET SR PO NR ×2 (11:15→17:00)
[2020-04-29] MEDS ORDERED: ACETAMINOPHEN 325MG TABLET PO PRN (12:30)
[2020-04-29] MEDS ORDERED: OMEPRAZOLE 20MG CAPSULE EXTENDED RELEASE PO NR (14:00)
[2020-04-29 14:20] VITALS: BP 126/54
[2020-04-29] MEDS: ONDANSETRON HCL 4MG/2ML INJ IV PRN (14:31)
[2020-04-29] MEDS: MORPHINE SULFATE 2 MG/ML CPJ (NOT FOR IM USE) IV PRN ×2 (14:40→20:44)
[2020-04-29] MEDS ORDERED: FURO40TA5 MT (14:55)
[2020-04-29] MEDS ORDERED: AMLO10TA80 MT (14:55)
[2020-04-29 16:00] VITALS: BP 122/51
[2020-04-29] MEDS: DOCUSATE SODIUM 250MG CAPSULE PO SCH (17:26)
[2020-04-29] MEDS: FAMOTIDINE 20MG TABLET PO SCH (17:26)
[2020-04-29 17:56] LABS: CLARITY URINE CLEAR (CLEAR); COLOR URINE YELLOW (YELLOW); KETONES URINE NEGATIVE (NEGATIVE); LEUKOCYTE ESTERASE URINE NEGATIVE (NEGATIVE); NITRITE URINE NEGATIVE (NEGATIVE); OCCULT BLOOD URINE NEGATIVE (NEGATIVE); PH URINE 7.5 (4.5-8.0); PROTEIN URINE NEGATIVE (NEGATIVE); SPECIFIC GRAVITY URINE 1.011 (1.005-1.030); UROBILINOGEN URINE 0.2 E.U./dL (0.2-1.0)
[2020-04-29] MEDS ORDERED: PIPERACILLIN/TAZOBACTAM 3.375 G in DEXT 5% WATER 100 ML IV SCH (18:00)
[2020-04-29 20:00] VITALS: BP 108/54
[2020-04-29] MEDS: PIPERACILLIN/TAZOBACTAM 3.375 G in DEXT 5% WATER 100 ML IV SCH (20:43)
[2020-04-29] MEDS ORDERED: DIPHENHYDRAMINE 50MG CAPSULE PO PRN (22:15)
[2020-04-30] VITALS: BP 122/56
[2020-04-30] MEDS: MORPHINE SULFATE 2 MG/ML CPJ (NOT FOR IM USE) IV PRN ×4 (01:09→20:44)
[2020-04-30] MEDS: PIPERACILLIN/TAZOBACTAM 3.375 G in DEXT 5% WATER 100 ML IV SCH ×4 (03:36→21:53)
[2020-04-30 04:00] VITALS: BP 118/63
[2020-04-30] MEDS ORDERED: OMEPRAZOLE 20MG CAPSULE EXTENDED RELEASE PO SCH (07:20)
[2020-04-30 07:59] LABS: CHLORIDE 101 mEq/L (98-107)
[2020-04-30 08:00] VITALS: BP 109/53
[2020-04-30 08:04] LABS: BASOPHILS % 0.8 % (0.0-2.0); EOSINOPHILS % 4.9 % (0.0-5.0); HEMATOCRIT. 29.7 % (36.0-48.0); HEMOGLOBIN. 10.3 g/dL (12.0-16.0); LYMPHOCYTES % 28.6 % (20.0-50.0); MEAN CORPUSCULAR HEMOGLOBIN 28.9 pg (28.0-32.0); MEAN CORPUSCULAR VOLUME 82.9 fL (81.0-99.0); MONOCYTES % 8.4 % (2.0-8.0); NEUTROPHILS % 57.3 % (40.0-76.0); PLATELET 247 x1000/uL (130-400); RED BLOOD CELL COUNT 3.58 mill/uL (4.2-5.4); RED CELL DISTRIBUTION WIDTH 13.2 % (11.6-14.6)
[2020-04-30] MEDS: FAMOTIDINE 20MG TABLET PO SCH (09:31)
[2020-04-30] MEDS: DOCUSATE SODIUM 250MG CAPSULE PO SCH (09:31)
[2020-04-30] MEDS ORDERED: POTASSIUM CHLORIDE 20MEQ TABLET SR PO NR (10:15)
[2020-04-30 12:00] VITALS: BP 125/56
[2020-04-30] MEDS ORDERED: IOHEXOL-300 50 ML BOTTLE IV ONE (14:41)
[2020-04-30] MEDS ORDERED: IOHEXOL-350 100 ML BOTTLE ONE (14:42)
[2020-04-30] MEDS ORDERED: IOHEXOL-300 100 ML BOTTLE ONE (14:42)
[2020-04-30] MEDS ORDERED: ASPIRIN 81MG TABLET PO SCH (15:45)
[2020-04-30 16:00] VITALS: BP 98/45
[2020-04-30] MEDS: METOPROLOL TARTRATE 25MG TABLET PO SCH (16:00)
[2020-04-30] MEDS ORDERED: ENOXAPARIN 60MG/0.6ML SYR SUBCUT SCH (17:00)
[2020-04-30 20:00] VITALS: BP 109/53
[2020-04-30] MEDS: ATORVASTATIN CALCIUM 40MG TABLET PO SCH (20:45)
[2020-05-01] VITALS: BP 102/46
[2020-05-01] MEDS: TEMAZEPAM 15MG CAPSULE PO PRN ×2 (00:43→22:54)
[2020-05-01] MEDS: PIPERACILLIN/TAZOBACTAM 3.375 G in DEXT 5% WATER 100 ML IV SCH ×4 (02:53→21:14)
[2020-05-01 04:00] VITALS: BP 104/54
[2020-05-01 08:00] VITALS: BP 110/63
[2020-05-01] MEDS: METOPROLOL TARTRATE 25MG TABLET PO SCH ×3 (08:49→21:00)
[2020-05-01] MEDS: DOCUSATE SODIUM 250MG CAPSULE PO SCH (08:49)
[2020-05-01] MEDS: FAMOTIDINE 20MG TABLET PO SCH (08:49)
[2020-05-01] MEDS: MORPHINE SULFATE 2 MG/ML CPJ (NOT FOR IM USE) IV PRN ×4 (08:50→21:31)
[2020-05-01] MEDS: ONDANSETRON HCL 4MG/2ML INJ IV PRN ×2 (08:50→21:31)
[2020-05-01 12:00] VITALS: BP 109/56
[2020-05-01 12:02] LABS: BASOPHILS % 0.6 % (0.0-2.0); EOSINOPHILS % 2.6 % (0.0-5.0); HEMATOCRIT. 33.1 % (36.0-48.0); HEMOGLOBIN. 11.2 g/dL (12.0-16.0); MEAN CORPUSCULAR HEMOGLOBIN 28.7 pg (28.0-32.0); MEAN CORPUSCULAR VOLUME 84.9 fL (81.0-99.0); MEAN PLATELET VOLUME 9.2 fl (7.4-10.4); NEUTROPHILS % 77.8 % (40.0-76.0); PLATELET 253 x1000/uL (130-400); RED CELL DISTRIBUTION WIDTH 13.1 % (11.6-14.6)
[2020-05-01 12:08] LABS: CHLORIDE 104 mEq/L (98-107)
[2020-05-01] MEDS: ASPIRIN 81MG TABLET PO SCH (13:37)
[2020-05-01] MEDS: TICAGRELOR 90 MG TABLET PO SCH ×2 (15:52→21:12)
[2020-05-01 16:00] VITALS: BP 104/53
[2020-05-01] MEDS ORDERED: HYDROCODONE/ACETAMINOPHEN 5/325MG TABLET PO PRN (16:45)
[2020-05-01 20:00] VITALS: BP 105/50
[2020-05-01] MEDS: ATORVASTATIN CALCIUM 40MG TABLET PO SCH (21:13)
[2020-05-02] VITALS: BP 96/38
[2020-05-02] MEDS: PIPERACILLIN/TAZOBACTAM 3.375 G in DEXT 5% WATER 100 ML IV SCH ×4 (03:59→23:41)
[2020-05-02 04:00] VITALS: BP 112/44
[2020-05-02 07:12] LABS: EOSINOPHILS % 3.3 % (0.0-5.0); HEMATOCRIT. 30.6 % (36.0-48.0); HEMOGLOBIN. 10.4 g/dL (12.0-16.0); LYMPHOCYTES % 20.5 % (20.0-50.0); MEAN CORPUSCULAR HEMOGLOBIN 28.9 pg (28.0-32.0); MEAN CORPUSCULAR VOLUME 85.2 fL (81.0-99.0); MEAN PLATELET VOLUME 9.3 fl (7.4-10.4); MONOCYTES % 7.4 % (2.0-8.0); NEUTROPHILS % 67.8 % (40.0-76.0); PLATELET 229 x1000/uL (130-400); RED BLOOD CELL COUNT 3.59 mill/uL (4.2-5.4); RED CELL DISTRIBUTION WIDTH 12.9 % (11.6-14.6)
[2020-05-02 07:25] LABS: CHLORIDE 105 mEq/L (98-107)
[2020-05-02 08:00] VITALS: BP 108/55
[2020-05-02] MEDS: DOCUSATE SODIUM 250MG CAPSULE PO SCH (08:59)
[2020-05-02] MEDS: ASPIRIN 81MG TABLET PO SCH (09:00)
[2020-05-02] MEDS: METOPROLOL TARTRATE 25MG TABLET PO SCH ×2 (09:00→22:11)
[2020-05-02] MEDS: TICAGRELOR 90 MG TABLET PO SCH ×2 (09:00→22:11)
[2020-05-02] MEDS: FAMOTIDINE 20MG TABLET PO SCH (09:00)
[2020-05-02] MEDS: MORPHINE SULFATE 2 MG/ML CPJ (NOT FOR IM USE) IV PRN ×3 (09:01→23:58)
[2020-05-02] MEDS: ONDANSETRON HCL 4MG/2ML INJ IV PRN (09:09)
[2020-05-02 12:00] VITALS: BP 111/49
[2020-05-02 16:00] VITALS: BP 126/53
[2020-05-02] MEDS ORDERED: HYDROCODONE/APAP 7.5/325MG 1 TAB TABLET PO PRN (16:15)
[2020-05-02 20:00] VITALS: BP 127/48
[2020-05-02] MEDS: ATORVASTATIN CALCIUM 40MG TABLET PO SCH (22:11)
[2020-05-02] MEDS: TEMAZEPAM 15MG CAPSULE PO PRN (23:58)
[2020-05-03] VITALS: BP 126/54
[2020-05-03 04:00] VITALS: BP 103/59
[2020-05-03] MEDS: PIPERACILLIN/TAZOBACTAM 3.375 G in DEXT 5% WATER 100 ML IV SCH ×4 (05:32→23:25)
[2020-05-03 07:43] LABS: HEMATOCRIT. 28.6 % (36.0-48.0); HEMOGLOBIN. 9.9 g/dL (12.0-16.0); LYMPHOCYTES % 23.2 % (20.0-50.0); MEAN CORPUSCULAR HEMOGLOBIN 29.4 pg (28.0-32.0); MEAN CORPUSCULAR VOLUME 84.6 fL (81.0-99.0); MONOCYTES % 7.5 % (2.0-8.0); NEUTROPHILS % 63.3 % (40.0-76.0); PLATELET 238 x1000/uL (130-400); RED BLOOD CELL COUNT 3.38 mill/uL (4.2-5.4)
[2020-05-03 07:53] LABS: CHLORIDE 109 mEq/L (98-107)
[2020-05-03 08:00] VITALS: BP 105/50
[2020-05-03 08:00] LABS: AMYLASE 43 IU/L (25-115)
[2020-05-03] MEDS ORDERED: SODIUM BICARBONATE 4% (2.4MEQ) 5ML VIAL IV ONE (08:40)
[2020-05-03] MEDS ORDERED: LIDOCAINE HCL 1% 20ML VIAL (Pyxis) INJ ONE (08:40)
[2020-05-03] MEDS: METOPROLOL TARTRATE 25MG TABLET PO SCH ×2 (09:00→22:11)
[2020-05-03] MEDS: FAMOTIDINE 20MG TABLET PO SCH (10:24)
[2020-05-03] MEDS: TICAGRELOR 90 MG TABLET PO SCH ×2 (10:24→22:11)
[2020-05-03] MEDS: ASPIRIN 81MG TABLET PO SCH (10:24)
[2020-05-03] MEDS: DOCUSATE SODIUM 250MG CAPSULE PO SCH (10:24)
[2020-05-03] MEDS: MORPHINE SULFATE 2 MG/ML CPJ (NOT FOR IM USE) IV PRN ×3 (10:26→23:25)
[2020-05-03] MEDS: ONDANSETRON HCL 4MG/2ML INJ IV PRN (10:33)
[2020-05-03 12:00] VITALS: BP 150/56
[2020-05-03 16:00] VITALS: BP 146/61
[2020-05-03 20:00] VITALS: BP 142/61
[2020-05-03] MEDS: ATORVASTATIN CALCIUM 40MG TABLET PO SCH (22:12)
[2020-05-04] VITALS: BP 150/62
[2020-05-04] MEDS: TEMAZEPAM 15MG CAPSULE PO PRN (00:22)
[2020-05-04] MEDS: PIPERACILLIN/TAZOBACTAM 3.375 G in DEXT 5% WATER 100 ML IV SCH ×3 (03:37→16:05)
[2020-05-04 04:00] VITALS: BP 132/60
[2020-05-04] MEDS: MORPHINE SULFATE 2 MG/ML CPJ (NOT FOR IM USE) IV PRN ×3 (04:40→14:42)
[2020-05-04 07:22] LABS: HEMATOCRIT 26.1 % (36.0-48.0); MEAN CORPUSCULAR HEMOGLOBIN 29.4 pg (28.0-32.0); MEAN CORPUSCULAR VOLUME 85.5 fL (81.0-99.0); PLATELET 221 x1000/uL (130-400); RED BLOOD CELL COUNT 3.05 mill/uL (4.2-5.4); RED CELL DISTRIBUTION WIDTH 12.6 % (11.6-14.6)
[2020-05-04 07:42] LABS: CHLORIDE 111 mEq/L (98-107)
[2020-05-04 08:00] VITALS: BP 120/64
[2020-05-04] MEDS: FAMOTIDINE 20MG TABLET PO SCH (09:26)
[2020-05-04] MEDS: TICAGRELOR 90 MG TABLET PO SCH (09:26)
[2020-05-04] MEDS: ASPIRIN 81MG TABLET PO SCH (09:26)
[2020-05-04] MEDS: METOPROLOL TARTRATE 25MG TABLET PO SCH (09:27)
[2020-05-04] MEDS: DOCUSATE SODIUM 250MG CAPSULE PO SCH (09:27)
[2020-05-04] MEDS: ONDANSETRON HCL 4MG/2ML INJ IV PRN (09:30)
[2020-05-04 12:00] VITALS: BP 138/61
[2020-05-04 18:25] VITALS: BP 155/57
== END 2020-05-04 18:54 | disposition home or self-care (01) ==
LOC: ER 02:29 → 6EST 06:15 → EDBEDREQ 06:18 → EDBEDREQSVC 06:18 → EDBEDREQTM 06:18 → ENRESERV 09:48
PROVIDERS: ADMIT Internal Medicine; ATTEND Internal Medicine
PROC: 02HV33Z Insertion of Infusion Device into Superior Vena Cava, Percutaneous Approach (ICD-10-PCS; principal; 2020-05-03)
PROC: B518ZZA Fluoroscopy of Superior Vena Cava, Guidance (ICD-10-PCS; 2020-05-03)
PROC: B548ZZA Ultrasonography of Superior Vena Cava, Guidance (ICD-10-PCS; 2020-05-03)
DX: K80.20 Calculus of gallbladder without cholecystitis without obstruction (principal); K29.70 Gastritis, unspecified, without bleeding; K21.9 Gastro-esophageal reflux disease without esophagitis; E87.8 Other disorders of electrolyte and fluid balance, not elsewhere classified; E87.1 Hypo-osmolality and hyponatremia; E87.6 Hypokalemia; I10 Essential (primary) hypertension; I25.10 Atherosclerotic heart disease of native coronary artery without angina pectoris; J45.909 Unspecified asthma, uncomplicated; E04.2 Nontoxic multinodular goiter; R73.9 Hyperglycemia, unspecified; I31.3 Pericardial effusion (noninflammatory); C50.919 Malignant neoplasm of unspecified site of unspecified female breast; R74.01 Elevation of levels of liver transaminase levels; J90 Pleural effusion, not elsewhere classified; Z20.828 Contact with and (suspected) exposure to other viral communicable diseases; N17.9 Acute kidney failure, unspecified; D68.9 Coagulation defect, unspecified; M54.9 Dorsalgia, unspecified; R26.89 Other abnormalities of gait and mobility; D64.9 Anemia, unspecified; E78.5 Hyperlipidemia, unspecified; Z90.12 Acquired absence of left breast and nipple; Z95.5 Presence of coronary angioplasty implant and graft; I25.2 Old myocardial infarction; Z79.02 Long term (current) use of antithrombotics/antiplatelets; Z79.899 Other long term (current) drug therapy; Z96.89 Presence of other specified functional implants
CPT/HCPCS: 36415; 36573; 71045; 74174; 74176; 78227; 80048; 80053; 80076; 81003; 82150; 83605; 83735; 83880; 84132; 84145; 84484; 85025; 85027; 87426; 93005; 93306; 97116; 97162; 99291; A9537; C1725; C1893; J1650; J2270; J2405; J2543; J3480; J3490; J7040; J7060; Q0163; Q9967; J8499

== ENCOUNTER 2020-09-12 01:15 | Inpatient (IN) | payer MEDICAID ==
[~2020-09-12] VITALS: Ht 157.5 cm; Wt 65.8 kg
[~2020-09-12 01:15] MED LIST changes: +AMLO10TA80 MT; +FURO40TA5 MT
[2020-09-12] MEDS ORDERED: SODIUM CHLORIDE 0.9% 500 ML IV ONE (02:00)
[2020-09-12] MEDS ORDERED: MORPHINE SULFATE 4 MG/ML CPJ (NOT FOR IM USE) IV ONE (02:00)
[2020-09-12] MEDS ORDERED: ONDANSETRON HCL 4MG/2ML INJ IV ONE (02:00)
[2020-09-12 02:41] LABS: CHLORIDE 91 mEq/L (98-107)
[2020-09-12 02:45] LABS: ETHANOL BLOOD < 10 mg/dL
[2020-09-12 02:46] LABS: BASOPHILS % 0.6 % (0.0-2.0); EOSINOPHILS % 2.6 % (0.0-5.0); HEMATOCRIT. 29.8 % (36.0-48.0); LYMPHOCYTES % 22.3 % (20.0-50.0); MEAN CORPUSCULAR HEMOGLOBIN 29.3 pg (28.0-32.0); MEAN CORPUSCULAR VOLUME 86.8 fL (81.0-99.0); MEAN PLATELET VOLUME 9.9 fl (7.4-10.4); NEUTROPHILS % 67.5 % (40.0-76.0); PLATELET 222 x1000/uL (130-400); RED BLOOD CELL COUNT 3.43 mill/uL (4.2-5.4); RED CELL DISTRIBUTION WIDTH 13.3 % (11.6-14.6)
[2020-09-12 02:51] LABS: PROTHROMBIN TIME 10.4 sec (9.6-11.0)
[2020-09-12] MEDS ORDERED: KCL 20MEQ/100ML PREMIX 100 ML IV NR ×2 (04:00→06:00)
[2020-09-12 05:20] LABS: CLARITY URINE CLEAR (CLEAR); COLOR URINE YELLOW (YELLOW); KETONES URINE NEGATIVE (NEGATIVE); LEUKOCYTE ESTERASE URINE NEGATIVE (NEGATIVE); NITRITE URINE NEGATIVE (NEGATIVE); OCCULT BLOOD URINE NEGATIVE (NEGATIVE); PH URINE 7.5 (4.5-8.0); PROTEIN URINE NEGATIVE (NEGATIVE); SPECIFIC GRAVITY URINE 1.006 (1.005-1.030); UROBILINOGEN URINE 0.2 E.U./dL (0.2-1.0)
[2020-09-12 10:00] VITALS: BP 102/44
[2020-09-12 10:07] VITALS: BP 102/44
[2020-09-12] MEDS ORDERED: IPRATROPIUM/ALBUTEROL 0.5-3(2.5)MG/3ML NEB NEB PRN (10:30)
[2020-09-12] MEDS ORDERED: ONDANSETRON HCL 4MG/2ML INJ IV PRN (10:30)
[2020-09-12] MEDS ORDERED: DEXTROSE 50% WATER 50ML SYRINGE IV PRN (10:30)
[2020-09-12] MEDS ORDERED: ACETAMINOPHEN 650MG SUPP PR PRN (10:30)
[2020-09-12] MEDS ORDERED: ZOLP5TAB8 PO (10:39)
[2020-09-12] MEDS: DEXT 5%/0.9% NACL 1,000 ML IV SCH (10:59)
[2020-09-12] MEDS ORDERED: PIPERACILLIN/TAZ 3.375G PREMIX 50 ML IV SCH (11:00)
[2020-09-12] MEDS: BLOOD SUGAR DIAGNOSTIC STRIP TEST SCH ×3 (11:45→20:18)
[2020-09-12 12:00] VITALS: BP 107/50
[2020-09-12] MEDS: INSULIN LISPRO 100 UNITS/ML SUBCUT SCH ×3 (12:15→20:18)
[2020-09-12] MEDS: PANTOPRAZOLE SODIUM 40 MG/VIAL IV SCH (13:38)
[2020-09-12] MEDS: ENOXAPARIN 40MG/0.4ML SYR SUBCUT SCH (13:39)
[2020-09-12] MEDS: PIPERACILLIN/TAZOBACTAM 3.375 G in DEXT 5% WATER 100 ML IV SCH ×2 (13:40→20:55)
[2020-09-12] MEDS: MORPHINE SULFATE 2 MG/ML CPJ (NOT FOR IM USE) IV PRN ×2 (14:01→19:53)
[2020-09-12] MEDS ORDERED: LIDOCAINE HCL 1% 20ML VIAL (Pyxis) INJ ONE (14:28)
[2020-09-12 16:00] VITALS: BP 116/56
[2020-09-12] MEDS ORDERED: METOCLOPRAMIDE HCL 10MG/2ML VIAL IV PRN (16:45)
[2020-09-12] MEDS ORDERED: OXAP600T4 PO (18:01)
[2020-09-12] MEDS ORDERED: FERR325T6 PO (18:01)
[2020-09-12] MEDS ORDERED: NITR0.4T49 SL (18:01)
[2020-09-12] MEDS ORDERED: METF-414 PO (18:03)
[2020-09-12 20:00] VITALS: BP 101/56
[2020-09-12] MEDS: LORAZEPAM 2MG/ML CPJ IV PRN (22:26)
[2020-09-12 23:17] LABS: BASOPHILS % 0.3 % (0.0-2.0); EOSINOPHILS % 1.4 % (0.0-5.0); HEMATOCRIT. 31.9 % (36.0-48.0); HEMOGLOBIN. 11.3 g/dL (12.0-16.0); MEAN CORPUSCULAR HEMOGLOBIN 30.1 pg (28.0-32.0); MEAN CORPUSCULAR VOLUME 84.7 fL (81.0-99.0); MEAN PLATELET VOLUME 9.8 fl (7.4-10.4); NEUTROPHILS % 73.3 % (40.0-76.0); PLATELET 241 x1000/uL (130-400); RED BLOOD CELL COUNT 3.77 mill/uL (4.2-5.4); RED CELL DISTRIBUTION WIDTH 13.3 % (11.6-14.6)
[2020-09-12 23:35] LABS: CHLORIDE 102 mEq/L (98-107)
[2020-09-12 23:42] LABS: PHOSPHORUS 3.4 mg/dL (2.5-4.9)
[2020-09-13] VITALS: BP 99/43
[2020-09-13] MEDS ORDERED: POTASSIUM CHLORIDE INJ 40 MEQ in DEXT 5% WATER 250 ML IV SCH (01:00)
[2020-09-13 04:00] VITALS: BP 115/58
[2020-09-13] MEDS: PIPERACILLIN/TAZOBACTAM 3.375 G in DEXT 5% WATER 100 ML IV SCH ×3 (04:10→21:54)
[2020-09-13] MEDS: MORPHINE SULFATE 2 MG/ML CPJ (NOT FOR IM USE) IV PRN ×4 (04:19→22:43)
[2020-09-13] MEDS: BLOOD SUGAR DIAGNOSTIC STRIP TEST SCH ×4 (06:39→21:28)
[2020-09-13] MEDS: DEXT 5%/0.9% NACL 1,000 ML IV SCH ×3 (06:40→17:00)
[2020-09-13] MEDS: INSULIN LISPRO 100 UNITS/ML SUBCUT SCH ×4 (06:46→21:00)
[2020-09-13 07:00] LABS: BASOPHILS % 0.8 % (0.0-2.0); EOSINOPHILS % 2.3 % (0.0-5.0); HEMATOCRIT. 30.4 % (36.0-48.0); HEMOGLOBIN. 10.6 g/dL (12.0-16.0); LYMPHOCYTES % 19.7 % (20.0-50.0); MEAN CORPUSCULAR HEMOGLOBIN 29.7 pg (28.0-32.0); MEAN CORPUSCULAR VOLUME 84.9 fL (81.0-99.0); MONOCYTES % 9.4 % (2.0-8.0); NEUTROPHILS % 67.8 % (40.0-76.0); PLATELET 207 x1000/uL (130-400); RED BLOOD CELL COUNT 3.58 mill/uL (4.2-5.4)
[2020-09-13 07:07] LABS: CHLORIDE 107 mEq/L (98-107)
[2020-09-13 07:17] LABS: HDL CHOLESTEROL 41 mg/dL (40-59); LDL CHOLESTEROL 68 mg/dL (5-100)
[2020-09-13 07:19] LABS: T4 FREE 1.46 ng/dL (0.76-1.46)
[2020-09-13 08:00] VITALS: BP 99/45
[2020-09-13] MEDS: PANTOPRAZOLE SODIUM 40 MG/VIAL IV SCH (09:55)
[2020-09-13 12:00] VITALS: BP 107/52
[2020-09-13] MEDS: ENOXAPARIN 40MG/0.4ML SYR SUBCUT SCH (13:19)
[2020-09-13 16:00] VITALS: BP 106/59
[2020-09-13 20:00] VITALS: BP 127/57
[2020-09-13] MEDS: LORAZEPAM 2MG/ML CPJ IV PRN (22:27)
[2020-09-14] VITALS: BP 95/50
[2020-09-14] MEDS: PIPERACILLIN/TAZOBACTAM 3.375 G in DEXT 5% WATER 100 ML IV SCH ×4 (02:18→20:03)
[2020-09-14] MEDS: DEXT 5%/0.9% NACL 1,000 ML IV SCH ×2 (03:16→13:00)
[2020-09-14 04:00] VITALS: BP 111/65
[2020-09-14] MEDS: BLOOD SUGAR DIAGNOSTIC STRIP TEST SCH ×4 (06:41→20:48)
[2020-09-14] MEDS: INSULIN LISPRO 100 UNITS/ML SUBCUT SCH ×4 (06:42→21:17)
[2020-09-14 08:00] VITALS: BP 168/67
[2020-09-14 08:43] LABS: BASOPHILS % 0.6 % (0.0-2.0); HEMATOCRIT. 28.1 % (36.0-48.0); HEMOGLOBIN. 9.8 g/dL (12.0-16.0); LYMPHOCYTES % 24.1 % (20.0-50.0); MEAN CORPUSCULAR HEMOGLOBIN 30.2 pg (28.0-32.0); MEAN CORPUSCULAR VOLUME 86.6 fL (81.0-99.0); MEAN PLATELET VOLUME 9.1 fl (7.4-10.4); MONOCYTES % 8.9 % (2.0-8.0); NEUTROPHILS % 63.4 % (40.0-76.0); PLATELET 201 x1000/uL (130-400); RED BLOOD CELL COUNT 3.24 mill/uL (4.2-5.4); RED CELL DISTRIBUTION WIDTH 13.4 % (11.6-14.6)
[2020-09-14 08:51] LABS: CHLORIDE 109 mEq/L (98-107)
[2020-09-14] MEDS ORDERED: AMLODIPINE 10MG TABLET PO NR (09:00)
[2020-09-14] MEDS: PANTOPRAZOLE SODIUM 40 MG/VIAL IV SCH (09:46)
[2020-09-14] MEDS ORDERED: POTASSIUM CHLORIDE 20MEQ TABLET SR PO NR (11:30)
[2020-09-14 12:00] VITALS: BP 139/70
[2020-09-14] MEDS: ENOXAPARIN 40MG/0.4ML SYR SUBCUT SCH (12:26)
[2020-09-14] MEDS: MORPHINE SULFATE 2 MG/ML CPJ (NOT FOR IM USE) IV PRN ×2 (12:27→20:01)
[2020-09-14 16:00] VITALS: BP 128/74
[2020-09-14 20:00] VITALS: BP 142/64
[2020-09-14] MEDS: AMLODIPINE 5MG TABLET PO SCH (20:02)
[2020-09-14] MEDS: LORAZEPAM 2MG/ML CPJ IV PRN (22:17)
[2020-09-15] VITALS (7 sets, daily range): BP systolic 98–144; BP diastolic 57–72
[2020-09-15] MEDS: PIPERACILLIN/TAZOBACTAM 3.375 G in DEXT 5% WATER 100 ML IV SCH ×4 (02:25→22:04)
[2020-09-15] MEDS: DEXT 5%/0.9% NACL 1,000 ML IV SCH ×3 (02:28→19:00)
[2020-09-15] MEDS: BLOOD SUGAR DIAGNOSTIC STRIP TEST SCH ×4 (06:22→21:00)
[2020-09-15] MEDS: INSULIN LISPRO 100 UNITS/ML SUBCUT SCH ×4 (06:22→21:00)
[2020-09-15 07:26] LABS: BASOPHILS % 0.7 % (0.0-2.0); EOSINOPHILS % 3.4 % (0.0-5.0); HEMATOCRIT. 27.4 % (36.0-48.0); HEMOGLOBIN. 9.3 g/dL (12.0-16.0); LYMPHOCYTES % 22.7 % (20.0-50.0); MEAN CORPUSCULAR HEMOGLOBIN 29.6 pg (28.0-32.0); MEAN CORPUSCULAR VOLUME 87.8 fL (81.0-99.0); MEAN PLATELET VOLUME 9.5 fl (7.4-10.4); NEUTROPHILS % 66.2 % (40.0-76.0); PLATELET 190 x1000/uL (130-400); RED BLOOD CELL COUNT 3.13 mill/uL (4.2-5.4); RED CELL DISTRIBUTION WIDTH 12.9 % (11.6-14.6)
[2020-09-15 07:49] LABS: CHLORIDE 115 mEq/L (98-107)
[2020-09-15] MEDS: ASPIRIN 81MG EC TABLET PO SCH (09:00)
[2020-09-15] MEDS: AMLODIPINE 5MG TABLET PO SCH ×2 (09:06→22:15)
[2020-09-15] MEDS: FAMOTIDINE 20MG/2ML VIAL IV SCH (09:07)
[2020-09-15] MEDS ORDERED: POTASSIUM CHLORIDE 20MEQ TABLET SR PO NR (11:00)
[2020-09-15] MEDS: ENOXAPARIN 40MG/0.4ML SYR SUBCUT SCH (11:00)
[2020-09-15] MEDS: MORPHINE SULFATE 2 MG/ML CPJ (NOT FOR IM USE) IV PRN ×2 (15:33→22:05)
[2020-09-15] MEDS: METOPROLOL TARTRATE 25MG TABLET PO SCH (15:33)
[2020-09-15] MEDS: ATORVASTATIN CALCIUM 40MG TABLET PO SCH (22:06)
[2020-09-15] MEDS: LORAZEPAM 2MG/ML CPJ IV PRN (22:15)
[2020-09-16] VITALS: BP 96/59
[2020-09-16] MEDS: PIPERACILLIN/TAZOBACTAM 3.375 G in DEXT 5% WATER 100 ML IV SCH ×4 (02:46→21:33)
[2020-09-16 04:00] VITALS: BP 133/65
[2020-09-16] MEDS: BLOOD SUGAR DIAGNOSTIC STRIP TEST SCH ×4 (05:56→21:34)
[2020-09-16] MEDS: DEXT 5%/0.9% NACL 1,000 ML IV SCH ×2 (06:02→14:33)
[2020-09-16 06:09] LABS: BASOPHILS % 0.8 % (0.0-2.0); EOSINOPHILS % 4.6 % (0.0-5.0); HEMATOCRIT. 26.1 % (36.0-48.0); HEMOGLOBIN. 9.1 g/dL (12.0-16.0); MEAN CORPUSCULAR HEMOGLOBIN 30.4 pg (28.0-32.0); MEAN CORPUSCULAR VOLUME 87.2 fL (81.0-99.0); MEAN PLATELET VOLUME 8.9 fl (7.4-10.4); MONOCYTES % 7.7 % (2.0-8.0); NEUTROPHILS % 56.9 % (40.0-76.0); PLATELET 186 x1000/uL (130-400); RED BLOOD CELL COUNT 2.99 mill/uL (4.2-5.4); RED CELL DISTRIBUTION WIDTH 13.1 % (11.6-14.6)
[2020-09-16 06:35] LABS: CHLORIDE 115 mEq/L (98-107)
[2020-09-16 08:00] VITALS: BP 134/68
[2020-09-16] MEDS: INSULIN LISPRO 100 UNITS/ML SUBCUT SCH ×4 (08:56→21:00)
[2020-09-16] MEDS: ASPIRIN 81MG EC TABLET PO SCH (08:56)
[2020-09-16] MEDS: FAMOTIDINE 20MG/2ML VIAL IV SCH (09:31)
[2020-09-16] MEDS: AMLODIPINE 5MG TABLET PO SCH ×2 (09:32→21:33)
[2020-09-16] MEDS: METOPROLOL TARTRATE 25MG TABLET PO SCH (09:32)
[2020-09-16] MEDS: MORPHINE SULFATE 2 MG/ML CPJ (NOT FOR IM USE) IV PRN (09:44)
[2020-09-16] MEDS: ENOXAPARIN 40MG/0.4ML SYR SUBCUT SCH (11:00)
[2020-09-16] MEDS ORDERED: POTASSIUM CHLORIDE 20MEQ TABLET SR PO NR (11:00)
[2020-09-16 12:00] VITALS: BP 118/56
[2020-09-16 16:00] VITALS: BP 143/70
[2020-09-16 20:00] VITALS: BP 130/53
[2020-09-16] MEDS: ATORVASTATIN CALCIUM 40MG TABLET PO SCH (21:33)
[2020-09-16] MEDS: LORAZEPAM 2MG/ML CPJ IV PRN (23:50)
[2020-09-17] VITALS (28 sets, daily range): BP systolic 108–152; BP diastolic 50–79
[2020-09-17] MEDS: DEXT 5%/0.9% NACL 1,000 ML IV SCH ×3 (00:59→21:08)
[2020-09-17 06:29] LABS: CHLORIDE 116 mEq/L (98-107)
[2020-09-17] MEDS: BLOOD SUGAR DIAGNOSTIC STRIP TEST SCH ×4 (06:45→21:11)
[2020-09-17 06:46] LABS: BASOPHILS % 0.6 % (0.0-2.0); HEMATOCRIT. 27.4 % (36.0-48.0); HEMOGLOBIN. 9.3 g/dL (12.0-16.0); LYMPHOCYTES % 30.4 % (20.0-50.0); MEAN CORPUSCULAR HEMOGLOBIN 29.3 pg (28.0-32.0); MEAN CORPUSCULAR VOLUME 86.5 fL (81.0-99.0); MEAN PLATELET VOLUME 8.9 fl (7.4-10.4); MONOCYTES % 7.6 % (2.0-8.0); NEUTROPHILS % 56.4 % (40.0-76.0); PLATELET 193 x1000/uL (130-400); RED BLOOD CELL COUNT 3.17 mill/uL (4.2-5.4); RED CELL DISTRIBUTION WIDTH 12.8 % (11.6-14.6)
[2020-09-17] MEDS: INSULIN LISPRO 100 UNITS/ML SUBCUT SCH ×4 (07:15→21:09)
[2020-09-17] MEDS: AMLODIPINE 5MG TABLET PO SCH ×2 (09:47→21:09)
[2020-09-17] MEDS: ASPIRIN 81MG EC TABLET PO SCH ×2 (09:47→09:52)
[2020-09-17] MEDS: FAMOTIDINE 20MG TABLET PO SCH (09:47)
[2020-09-17] MEDS: ENOXAPARIN 40MG/0.4ML SYR SUBCUT SCH (11:00)
[2020-09-17] MEDS ORDERED: DOPAMINE 400MG/250ML PREMIX 250 ML IV STA (12:42)
[2020-09-17] MEDS ORDERED: POTASSIUM CHLORIDE 20MEQ/PACKET PO NR (13:00)
[2020-09-17] MEDS: MORPHINE SULFATE 2 MG/ML CPJ (NOT FOR IM USE) IV PRN ×2 (13:17→21:16)
[2020-09-17] MEDS ORDERED: LIDOCAINE HCL 1% 20ML VIAL (Pyxis) INJ ONE (14:54)
[2020-09-17] MEDS ORDERED: FENTANYL CITRATE/PF 50MCG/ML 2ML VIAL ONE (15:33)
[2020-09-17] MEDS ORDERED: MIDAZOLAM HCL 2 MG/2 ML VIAL ONE (15:34)
[2020-09-17 15:35] LABS: PHOSPHORUS 2.6 mg/dL (2.5-4.9)
[2020-09-17] MEDS ORDERED: MORPHINE SULFATE 2 MG/ML CPJ (NOT FOR IM USE) IV NR (16:30)
[2020-09-17] MEDS: METOPROLOL TARTRATE 25MG TABLET PO SCH ×2 (16:40→21:08)
[2020-09-17] MEDS: ATORVASTATIN CALCIUM 40MG TABLET PO SCH (21:08)
[2020-09-17] MEDS: DIPHENHYDRAMINE 50MG/ML VIAL IV PRN (21:16)
[2020-09-18] VITALS (52 sets, daily range): BP systolic 101–169; BP diastolic 50–90
[2020-09-18] MEDS: MORPHINE SULFATE 2 MG/ML CPJ (NOT FOR IM USE) IV PRN ×3 (04:19→18:59)
[2020-09-18 05:45] LABS: BASOPHILS % 0.6 % (0.0-2.0); EOSINOPHILS % 5.3 % (0.0-5.0); HEMATOCRIT. 32.1 % (36.0-48.0); LYMPHOCYTES % 27.2 % (20.0-50.0); MEAN CORPUSCULAR HEMOGLOBIN 29.6 pg (28.0-32.0); MEAN CORPUSCULAR VOLUME 86.6 fL (81.0-99.0); MEAN PLATELET VOLUME 9.2 fl (7.4-10.4); MONOCYTES % 6.6 % (2.0-8.0); NEUTROPHILS % 60.3 % (40.0-76.0); PLATELET 201 x1000/uL (130-400); RED BLOOD CELL COUNT 3.71 mill/uL (4.2-5.4); RED CELL DISTRIBUTION WIDTH 13.3 % (11.6-14.6)
[2020-09-18 05:48] LABS: CHLORIDE 114 mEq/L (98-107)
[2020-09-18] MEDS: BLOOD SUGAR DIAGNOSTIC STRIP TEST SCH ×4 (06:33→20:10)
[2020-09-18] MEDS: DEXT 5%/0.9% NACL 1,000 ML IV SCH ×2 (06:33→18:29)
[2020-09-18] MEDS: INSULIN LISPRO 100 UNITS/ML SUBCUT SCH ×4 (06:33→20:10)
[2020-09-18] MEDS ORDERED: INDOCYANINE GREEN 25 MG VIAL IV ONE (07:08)
[2020-09-18] MEDS ORDERED: LIDOCAINE HCL 1% 20ML VIAL (Pyxis) INJ ONE (07:09)
[2020-09-18] MEDS ORDERED: SKIN ADHESIVE 0.7 GM EA TOP ONE (07:09)
[2020-09-18] MEDS ORDERED: BUPIVACAINE HCL/PF 0.5% (5MG/ML) 10ML ONE (07:09)
[2020-09-18] MEDS ORDERED: POLYMYXIN B SULFATE 500000 UNITS/VIAL ONE (07:09)
[2020-09-18] MEDS ORDERED: FENTANYL CITRATE/PF 50MCG/ML 2ML VIAL ONE ×3 (07:40→10:28)
[2020-09-18] MEDS ORDERED: PROPOFOL 200MG/20ML VIAL IV ONE (07:40)
[2020-09-18] MEDS ORDERED: MIDAZOLAM HCL 2 MG/2 ML VIAL ONE (07:40)
[2020-09-18] MEDS ORDERED: GLYCOPYRROLATE 0.2 MG/ML 2ML VIAL ONE (07:41)
[2020-09-18] MEDS ORDERED: ROCURONIUM BROMIDE 10MG/ML VIAL 5ML IV ONE (07:43)
[2020-09-18] MEDS ORDERED: ONDANSETRON HCL 4MG/2ML INJ ONE (07:56)
[2020-09-18] MEDS ORDERED: DEXAMETHASONE 4MG/ML 1ML VIAL ONE (07:56)
[2020-09-18] MEDS ORDERED: LABETALOL 5MG/ML SYR 20 MG/4 ML SYRINGE IV PRN (08:30)
[2020-09-18] MEDS ORDERED: MEPERIDINE HCL/PF 25MG/ML CPJ IV PRN (08:30)
[2020-09-18] MEDS: AMLODIPINE 5MG TABLET PO SCH ×2 (09:00→20:09)
[2020-09-18] MEDS: METOPROLOL TARTRATE 25MG TABLET PO SCH ×2 (09:00→20:09)
[2020-09-18] MEDS: FAMOTIDINE 20MG TABLET PO SCH (09:00)
[2020-09-18] MEDS: ONDANSETRON HCL 4MG/2ML INJ IV PRN ×2 (10:41→15:48)
[2020-09-18] MEDS: HYDROMORPHONE HCL/PF 2MG/ML CPJ IV PRN ×4 (10:42→21:12)
[2020-09-18] MEDS: ENOXAPARIN 40MG/0.4ML SYR SUBCUT SCH (11:00)
[2020-09-18] MEDS: ATORVASTATIN CALCIUM 40MG TABLET PO SCH (20:09)
[2020-09-18] MEDS ORDERED: FAMOTIDINE 20MG TABLET PO SCH (23:15)
[2020-09-19] VITALS (29 sets, daily range): BP systolic 102–140; BP diastolic 44–80
[2020-09-19] MEDS: HYDROMORPHONE HCL/PF 2MG/ML CPJ IV PRN (02:04)
[2020-09-19] MEDS: DIPHENHYDRAMINE 50MG/ML VIAL IV PRN (02:39)
[2020-09-19] MEDS: DEXT 5%/0.9% NACL 1,000 ML IV SCH ×3 (03:00→23:43)
[2020-09-19 06:23] LABS: CHLORIDE 114 mEq/L (98-107)
[2020-09-19] MEDS ORDERED: MEPERIDINE HCL/PF 25MG/ML CPJ IV PRN (06:30)
[2020-09-19] MEDS ORDERED: KETOROLAC 30MG/ML VIAL IV SCH (06:30)
[2020-09-19 07:02] LABS: HEMATOCRIT. 29.9 % (36.0-48.0); HEMOGLOBIN. 10.3 g/dL (12.0-16.0); MEAN CORPUSCULAR VOLUME 86.6 fL (81.0-99.0); MEAN PLATELET VOLUME 9.2 fl (7.4-10.4); PLATELET 153 x1000/uL (130-400); RED BLOOD CELL COUNT 3.45 mill/uL (4.2-5.4); RED CELL DISTRIBUTION WIDTH 13.2 % (11.6-14.6)
[2020-09-19] MEDS: INSULIN LISPRO 100 UNITS/ML SUBCUT SCH ×4 (07:53→21:27)
[2020-09-19] MEDS: BLOOD SUGAR DIAGNOSTIC STRIP TEST SCH ×4 (07:53→21:22)
[2020-09-19] MEDS ORDERED: POTASSIUM CHLORIDE INJ 40 MEQ in DEXT 5% WATER 250 ML IV ONE (08:00)
[2020-09-19] MEDS ORDERED: FENTANYL CITRATE/PF 2,500 MCG in SODIUM CHLORIDE 0.9% 200 ML IV PRN (09:00)
[2020-09-19] MEDS ORDERED: GABAPENTIN 300MG CAPSULE PO NR (09:00)
[2020-09-19] MEDS ORDERED: ACETAMINOPHEN 500MG TABLET PO PRN (09:00)
[2020-09-19] MEDS: FAMOTIDINE 20MG TABLET PO SCH (09:11)
[2020-09-19] MEDS: METOPROLOL TARTRATE 25MG TABLET PO SCH ×2 (09:12→21:07)
[2020-09-19] MEDS: AMLODIPINE 5MG TABLET PO SCH ×2 (09:12→21:07)
[2020-09-19] MEDS ORDERED: FENTANYL CITRATE/PF 50MCG/ML 2ML VIAL IV PRN (09:15)
[2020-09-19] MEDS ORDERED: ACETAMINOPHEN 500MG TABLET PO NR (09:15)
[2020-09-19] MEDS ORDERED: ACETAMINOPHEN 500MG TABLET ONE (09:16)
[2020-09-19] MEDS ORDERED: MIDAZOLAM HCL 2 MG/2 ML VIAL ONE (10:23)
[2020-09-19] MEDS ORDERED: FENTANYL CITRATE/PF 50MCG/ML 2ML VIAL ONE (10:23)
[2020-09-19] MEDS ORDERED: PROPOFOL 10MG/ML 100ML 100 ML IV ONE (10:25)
[2020-09-19] MEDS ORDERED: SODIUM CHLORIDE 0.9% 10ML VIAL ONE (10:27)
[2020-09-19] MEDS ORDERED: ONDANSETRON HCL 4MG/2ML INJ ONE (10:27)
[2020-09-19] MEDS ORDERED: CEFAZOLIN SODIUM 1000MG/VIAL ONE (10:28)
[2020-09-19] MEDS ORDERED: EPINEPHRINE 0.1MG/ML (1:10,000) 10ML SYR ONE (10:39)
[2020-09-19] MEDS: ASPIRIN 81MG EC TABLET PO SCH (10:53)
[2020-09-19] MEDS: ENOXAPARIN 40MG/0.4ML SYR SUBCUT SCH (12:02)
[2020-09-19 12:32] LABS: PLATELET ESTIMATE NORMAL
[2020-09-19] MEDS: PIPERACILLIN/TAZOBACTAM 3.375 G in DEXT 5% WATER 100 ML IV SCH ×2 (12:35→17:32)
[2020-09-19] MEDS: MORPHINE SULFATE 2 MG/ML CPJ (NOT FOR IM USE) IV PRN ×2 (14:42→21:09)
[2020-09-19] MEDS: ACETAMINOPHEN 325MG TABLET PO PRN (16:41)
[2020-09-19] MEDS ORDERED: FENTANYL CITRATE/PF 50MCG/ML 2ML VIAL IV NR (17:54)
[2020-09-19] MEDS ORDERED: FENTANYL CITRATE/PF 50MCG/ML 2ML VIAL IV SCH (18:05)
[2020-09-19] MEDS: ATORVASTATIN CALCIUM 40MG TABLET PO SCH (21:08)
[2020-09-20] VITALS (40 sets, daily range): BP systolic 94–163; BP diastolic 36–71
[2020-09-20] MEDS: PIPERACILLIN/TAZOBACTAM 3.375 G in DEXT 5% WATER 100 ML IV SCH ×5 (00:05→23:29)
[2020-09-20] MEDS: DIPHENHYDRAMINE 50MG/ML VIAL IV PRN ×2 (01:10→23:32)
[2020-09-20] MEDS: MORPHINE SULFATE 2 MG/ML CPJ (NOT FOR IM USE) IV PRN ×4 (01:11→21:15)
[2020-09-20 05:54] LABS: BASOPHILS % 0.3 % (0.0-2.0); EOSINOPHILS % 2.6 % (0.0-5.0); HEMATOCRIT. 24.5 % (36.0-48.0); HEMOGLOBIN. 8.7 g/dL (12.0-16.0); LYMPHOCYTES % 8.6 % (20.0-50.0); MEAN CORPUSCULAR HEMOGLOBIN 30.6 pg (28.0-32.0); MEAN CORPUSCULAR VOLUME 86.3 fL (81.0-99.0); MEAN PLATELET VOLUME 9.1 fl (7.4-10.4); MONOCYTES % 5.7 % (2.0-8.0); NEUTROPHILS % 82.8 % (40.0-76.0); PLATELET 132 x1000/uL (130-400); RED BLOOD CELL COUNT 2.84 mill/uL (4.2-5.4)
[2020-09-20 06:02] LABS: CHLORIDE 118 mEq/L (98-107)
[2020-09-20] MEDS: INSULIN LISPRO 100 UNITS/ML SUBCUT SCH ×4 (07:01→21:00)
[2020-09-20] MEDS: BLOOD SUGAR DIAGNOSTIC STRIP TEST SCH ×4 (07:02→21:03)
[2020-09-20] MEDS ORDERED: POTASSIUM CHLORIDE INJ 40 MEQ in DEXT 5% WATER 250 ML IV ONE (07:15)
[2020-09-20] MEDS: FAMOTIDINE 20MG TABLET PO SCH (08:51)
[2020-09-20] MEDS: METOPROLOL TARTRATE 25MG TABLET PO SCH ×2 (08:52→21:02)
[2020-09-20] MEDS: DEXT 5%/0.9% NACL 1,000 ML IV SCH ×2 (08:52→18:54)
[2020-09-20] MEDS: AMLODIPINE 5MG TABLET PO SCH ×2 (08:52→21:03)
[2020-09-20] MEDS ORDERED: KCL 20MEQ/100ML PREMIX 100 ML IV NR (09:00)
[2020-09-20] MEDS: ENOXAPARIN 40MG/0.4ML SYR SUBCUT SCH (12:15)
[2020-09-20] MEDS: ACETAMINOPHEN 325MG TABLET PO PRN ×2 (12:16→18:52)
[2020-09-20] MEDS: ASPIRIN 81MG EC TABLET PO SCH (12:16)
[2020-09-20] MEDS ORDERED: MIDAZOLAM HCL 5 MG/5 ML VIAL ONE (15:09)
[2020-09-20] MEDS ORDERED: FENTANYL CITRATE/PF 50MCG/ML 5ML VIAL ONE (15:09)
[2020-09-20] MEDS: ATORVASTATIN CALCIUM 40MG TABLET PO SCH (21:02)
[2020-09-21] VITALS (41 sets, daily range): BP systolic 94–165; BP diastolic 45–86
[2020-09-21] MEDS: MORPHINE SULFATE 2 MG/ML CPJ (NOT FOR IM USE) IV PRN ×3 (01:54→21:05)
[2020-09-21] MEDS: PIPERACILLIN/TAZOBACTAM 3.375 G in DEXT 5% WATER 100 ML IV SCH ×3 (05:55→17:10)
[2020-09-21] MEDS: DEXT 5%/0.9% NACL 1,000 ML IV SCH ×2 (05:56→15:36)
[2020-09-21 06:43] LABS: BASOPHILS % 0.1 % (0.0-2.0); EOSINOPHILS % 2.2 % (0.0-5.0); HEMATOCRIT. 21.9 % (36.0-48.0); HEMOGLOBIN. 7.7 g/dL (12.0-16.0); LYMPHOCYTES % 9.9 % (20.0-50.0); MEAN CORPUSCULAR HEMOGLOBIN 30.3 pg (28.0-32.0); MEAN PLATELET VOLUME 9.5 fl (7.4-10.4); MONOCYTES % 5.7 % (2.0-8.0); NEUTROPHILS % 82.1 % (40.0-76.0); PLATELET 132 x1000/uL (130-400); RED BLOOD CELL COUNT 2.54 mill/uL (4.2-5.4); RED CELL DISTRIBUTION WIDTH 13.3 % (11.6-14.6)
[2020-09-21 06:52] LABS: CHLORIDE 112 mEq/L (98-107)
[2020-09-21] MEDS ORDERED: KCL 20MEQ/100ML PREMIX 100 ML IV STA (07:31)
[2020-09-21] MEDS ORDERED: POTASSIUM CHLORIDE INJ 40 MEQ in DEXT 5% WATER 250 ML IV ONE (07:45)
[2020-09-21] MEDS ORDERED: KCL 20MEQ/100ML PREMIX 100 ML IV ONE ×2 (07:45)
[2020-09-21] MEDS: INSULIN LISPRO 100 UNITS/ML SUBCUT SCH ×4 (08:20→21:00)
[2020-09-21] MEDS: BLOOD SUGAR DIAGNOSTIC STRIP TEST SCH ×4 (08:24→21:24)
[2020-09-21] MEDS ORDERED: SUCCINYLCHOLINE CHLORIDE 200MG/10ML IV ONE (08:52)
[2020-09-21] MEDS ORDERED: PROPOFOL 10MG/ML 100ML 100 ML IV ONE (08:52)
[2020-09-21] MEDS ORDERED: CEFAZOLIN SODIUM 1000MG/VIAL ONE (08:52)
[2020-09-21] MEDS ORDERED: MIDAZOLAM HCL 5 MG/5 ML VIAL ONE (08:52)
[2020-09-21] MEDS ORDERED: LIDOCAINE HCL 1% 20ML VIAL (Pyxis) INJ ONE (08:54)
[2020-09-21] MEDS ORDERED: GENTAMICIN SULF 40MG/ML 2ML VIAL ONE (08:54)
[2020-09-21] MEDS ORDERED: GENTAMICIN/NS IRRIGATION 500 ML IR ONE (08:55)
[2020-09-21] MEDS ORDERED: IODIXANOL 320MG/ML 100 ML BOTTLE IV ONE (08:55)
[2020-09-21] MEDS: METOPROLOL TARTRATE 25MG TABLET PO SCH ×2 (12:51→20:54)
[2020-09-21] MEDS: ASPIRIN 81MG EC TABLET PO SCH (12:51)
[2020-09-21] MEDS: AMLODIPINE 5MG TABLET PO SCH ×2 (12:52→20:55)
[2020-09-21] MEDS: FAMOTIDINE 20MG TABLET PO SCH (12:52)
[2020-09-21] MEDS: ENOXAPARIN 40MG/0.4ML SYR SUBCUT SCH (12:52)
[2020-09-21 13:08] LABS: BG BASE EXCESS -5.3 mmol/L (-2.0-2.0); BG CARBOXYHEMOGLOBIN 0.2 % (0.5-1.5); BG DEOXYHEMOGLOBIN 8.2 % (0.0-5.0); BG HCO3 ACT 18.5 mmol/L (22.0-26.0); BG METHEMOGLOBIN 0.4 % (0.0-1.5); BG OXYGEN SATURATION 91.8 % (92.0-98.5); BG OXYHEMOGLOBIN 91.2 % (94.0-97.0); BG PCO2 29.9 mmHg (35.0-45.0); BG PO2 60.5 mmHg (75.0-100.0); BG SAMPLE SITE RIGHT RADIAL; BG TOTAL HEMOGLOBIN 9.1 g/dL (12.0-18.0); BG VENT MODE ROOM AIR
[2020-09-21 16:13] LABS: BASOPHILS % 0.2 % (0.0-2.0); EOSINOPHILS % 1.6 % (0.0-5.0); HEMATOCRIT. 25.3 % (36.0-48.0); HEMOGLOBIN. 8.9 g/dL (12.0-16.0); LYMPHOCYTES % 7.3 % (20.0-50.0); MEAN CORPUSCULAR HEMOGLOBIN 30.2 pg (28.0-32.0); MEAN CORPUSCULAR VOLUME 86.2 fL (81.0-99.0); MEAN PLATELET VOLUME 9.3 fl (7.4-10.4); MONOCYTES % 3.9 % (2.0-8.0); PLATELET 167 x1000/uL (130-400); RED BLOOD CELL COUNT 2.94 mill/uL (4.2-5.4); RED CELL DISTRIBUTION WIDTH 13.3 % (11.6-14.6)
[2020-09-21] MEDS: DOCUSATE SODIUM 100MG CAPSULE PO SCH (16:15)
[2020-09-21] MEDS: HYDROCODONE/ACETAMINOPHEN 5/325MG TABLET PO PRN (16:15)
[2020-09-21 16:25] LABS: CHLORIDE 111 mEq/L (98-107)
[2020-09-21] MEDS ORDERED: POTASSIUM CHLORIDE 20MEQ/PACKET PO NR (16:30)
[2020-09-21] MEDS: ATORVASTATIN CALCIUM 40MG TABLET PO SCH (20:55)
[2020-09-21] MEDS: DIPHENHYDRAMINE 50MG/ML VIAL IV PRN (21:14)
[2020-09-22] VITALS (47 sets, daily range): BP systolic 117–184; BP diastolic 50–92
[2020-09-22] MEDS: PIPERACILLIN/TAZOBACTAM 3.375 G in DEXT 5% WATER 100 ML IV SCH ×5 (00:16→23:41)
[2020-09-22] MEDS: HYDROCODONE/ACETAMINOPHEN 5/325MG TABLET PO PRN ×3 (00:24→22:22)
[2020-09-22] MEDS: ACETAMINOPHEN 325MG TABLET PO PRN ×3 (02:13→18:36)
[2020-09-22] MEDS: DEXT 5%/0.9% NACL 1,000 ML IV SCH ×2 (02:13→11:32)
[2020-09-22 06:20] LABS: BASOPHILS % 0.3 % (0.0-2.0); EOSINOPHILS % 2.4 % (0.0-5.0); HEMATOCRIT. 27.4 % (36.0-48.0); HEMOGLOBIN. 9.4 g/dL (12.0-16.0); LYMPHOCYTES % 13.1 % (20.0-50.0); MEAN CORPUSCULAR HEMOGLOBIN 29.4 pg (28.0-32.0); MEAN CORPUSCULAR VOLUME 86.4 fL (81.0-99.0); MEAN PLATELET VOLUME 9.8 fl (7.4-10.4); MONOCYTES % 6.2 % (2.0-8.0); PLATELET 178 x1000/uL (130-400); RED BLOOD CELL COUNT 3.18 mill/uL (4.2-5.4); RED CELL DISTRIBUTION WIDTH 13.4 % (11.6-14.6)
[2020-09-22 06:21] LABS: CHLORIDE 114 mEq/L (98-107)
[2020-09-22] MEDS: MORPHINE SULFATE 2 MG/ML CPJ (NOT FOR IM USE) IV PRN ×3 (06:58→23:52)
[2020-09-22] MEDS ORDERED: POTASSIUM CHLORIDE 20MEQ TABLET SR PO NR (08:00)
[2020-09-22] MEDS: INSULIN LISPRO 100 UNITS/ML SUBCUT SCH ×4 (08:20→21:00)
[2020-09-22] MEDS: BLOOD SUGAR DIAGNOSTIC STRIP TEST SCH ×4 (08:41→21:00)
[2020-09-22] MEDS: DOCUSATE SODIUM 100MG CAPSULE PO SCH ×2 (08:41→17:07)
[2020-09-22] MEDS: AMLODIPINE 5MG TABLET PO SCH ×2 (08:41→20:09)
[2020-09-22] MEDS: FAMOTIDINE 20MG TABLET PO SCH (08:41)
[2020-09-22] MEDS: ASPIRIN 81MG EC TABLET PO SCH (08:41)
[2020-09-22] MEDS: METOPROLOL TARTRATE 25MG TABLET PO SCH ×2 (08:41→20:08)
[2020-09-22] MEDS: ENOXAPARIN 40MG/0.4ML SYR SUBCUT SCH (11:32)
[2020-09-22] MEDS: ATORVASTATIN CALCIUM 40MG TABLET PO SCH (20:09)
[2020-09-22] MEDS: DIPHENHYDRAMINE 50MG/ML VIAL IV PRN (22:27)
[2020-09-23] VITALS: BP 137/54
[2020-09-23 04:00] VITALS: BP 151/64
[2020-09-23] MEDS: PIPERACILLIN/TAZOBACTAM 3.375 G in DEXT 5% WATER 100 ML IV SCH ×4 (05:49→23:21)
[2020-09-23] MEDS: ACETAMINOPHEN 325MG TABLET PO PRN ×2 (06:02→17:57)
[2020-09-23] MEDS: INSULIN LISPRO 100 UNITS/ML SUBCUT SCH ×4 (07:07→20:42)
[2020-09-23] MEDS: BLOOD SUGAR DIAGNOSTIC STRIP TEST SCH ×4 (07:07→20:42)
[2020-09-23 08:00] VITALS: BP 150/68
[2020-09-23] MEDS: DOCUSATE SODIUM 100MG CAPSULE PO SCH ×2 (08:36→17:56)
[2020-09-23] MEDS: FAMOTIDINE 20MG TABLET PO SCH (08:36)
[2020-09-23] MEDS: METOPROLOL TARTRATE 25MG TABLET PO SCH ×2 (08:36→20:41)
[2020-09-23] MEDS: ASPIRIN 81MG EC TABLET PO SCH (08:37)
[2020-09-23] MEDS: AMLODIPINE 5MG TABLET PO SCH ×2 (08:37→20:41)
[2020-09-23 09:25] LABS: CHLORIDE 109 mEq/L (98-107)
[2020-09-23 09:29] LABS: BASOPHILS % 0.3 % (0.0-2.0); EOSINOPHILS % 3.6 % (0.0-5.0); HEMATOCRIT. 25.9 % (36.0-48.0); HEMOGLOBIN. 9.1 g/dL (12.0-16.0); LYMPHOCYTES % 9.7 % (20.0-50.0); MEAN CORPUSCULAR HEMOGLOBIN 30.1 pg (28.0-32.0); MEAN CORPUSCULAR VOLUME 86.1 fL (81.0-99.0); MEAN PLATELET VOLUME 8.8 fl (7.4-10.4); MONOCYTES % 6.3 % (2.0-8.0); NEUTROPHILS % 80.1 % (40.0-76.0); PLATELET 200 x1000/uL (130-400); RED BLOOD CELL COUNT 3.01 mill/uL (4.2-5.4)
[2020-09-23] MEDS: ENOXAPARIN 40MG/0.4ML SYR SUBCUT SCH (11:14)
[2020-09-23 12:00] VITALS: BP 112/55
[2020-09-23] MEDS ORDERED: POTASSIUM CHLORIDE 20MEQ TABLET SR PO SCH (12:15)
[2020-09-23] MEDS: MORPHINE SULFATE 2 MG/ML CPJ (NOT FOR IM USE) IV PRN ×2 (12:57→20:42)
[2020-09-23 16:00] VITALS: BP 137/57
[2020-09-23] MEDS: TICAGRELOR 90 MG TABLET PO SCH (17:56)
[2020-09-23 20:00] VITALS: BP 134/63
[2020-09-23] MEDS: ATORVASTATIN CALCIUM 40MG TABLET PO SCH (20:40)
[2020-09-23] MEDS: DIPHENHYDRAMINE 50MG/ML VIAL IV PRN (20:48)
[2020-09-24] VITALS: BP 147/60
[2020-09-24] MEDS: MORPHINE SULFATE 2 MG/ML CPJ (NOT FOR IM USE) IV PRN (03:24)
[2020-09-24 04:00] VITALS: BP 142/58
[2020-09-24] MEDS: PIPERACILLIN/TAZOBACTAM 3.375 G in DEXT 5% WATER 100 ML IV SCH (05:21)
[2020-09-24] MEDS: BLOOD SUGAR DIAGNOSTIC STRIP TEST SCH ×4 (06:16→20:19)
[2020-09-24] MEDS: INSULIN LISPRO 100 UNITS/ML SUBCUT SCH ×4 (06:16→20:34)
[2020-09-24 07:02] LABS: BASOPHILS % 0.4 % (0.0-2.0); HEMATOCRIT. 26.8 % (36.0-48.0); HEMOGLOBIN. 9.3 g/dL (12.0-16.0); LYMPHOCYTES % 9.4 % (20.0-50.0); MEAN CORPUSCULAR HEMOGLOBIN 29.7 pg (28.0-32.0); MEAN PLATELET VOLUME 8.4 fl (7.4-10.4); MONOCYTES % 5.6 % (2.0-8.0); NEUTROPHILS % 81.6 % (40.0-76.0); PLATELET 243 x1000/uL (130-400); RED BLOOD CELL COUNT 3.12 mill/uL (4.2-5.4); RED CELL DISTRIBUTION WIDTH 13.4 % (11.6-14.6)
[2020-09-24 07:57] LABS: CHLORIDE 111 mEq/L (98-107)
[2020-09-24 08:00] VITALS: BP 162/62
[2020-09-24] MEDS: METOPROLOL TARTRATE 25MG TABLET PO SCH ×2 (08:40→20:24)
[2020-09-24] MEDS: ENOXAPARIN 40MG/0.4ML SYR SUBCUT SCH (08:40)
[2020-09-24] MEDS: ASPIRIN 81MG EC TABLET PO SCH (08:41)
[2020-09-24] MEDS: FAMOTIDINE 20MG TABLET PO SCH (08:41)
[2020-09-24] MEDS: AMLODIPINE 5MG TABLET PO SCH ×2 (08:41→20:24)
[2020-09-24] MEDS: DOCUSATE SODIUM 100MG CAPSULE PO SCH ×2 (08:41→16:51)
[2020-09-24] MEDS: ACETAMINOPHEN 325MG TABLET PO PRN (08:42)
[2020-09-24] MEDS ORDERED: POTASSIUM CHLORIDE 20MEQ TABLET SR PO NR (11:15)
[2020-09-24 12:00] VITALS: BP 124/54
[2020-09-24] MEDS: TICAGRELOR 90 MG TABLET PO SCH ×2 (12:41→16:51)
[2020-09-24] MEDS: HYDROCODONE/ACETAMINOPHEN 5/325MG TABLET PO PRN ×2 (16:24→22:34)
[2020-09-24] MEDS: LEVOFLOXACIN 500MG PREMIX 100 ML IV SCH (16:50)
[2020-09-24] MEDS: VANCOMYCIN 1500MG in DEXTROSE 5% WATER 250ML IV NR ×2 (17:00→22:06)
[2020-09-24] MEDS ORDERED: LORAZEPAM 2MG/ML CPJ IV PRN (19:15)
[2020-09-24 20:00] VITALS: BP 143/64
[2020-09-24] MEDS: ATORVASTATIN CALCIUM 40MG TABLET PO SCH (20:24)
[2020-09-24] MEDS ORDERED: TEMAZEPAM 15MG CAPSULE PO PRN (21:00)
[2020-09-25] VITALS (8 sets, daily range): BP systolic 102–122; BP diastolic 53–70
[2020-09-25 00:07] LABS: CLARITY URINE CLEAR (CLEAR); COLOR URINE YELLOW (YELLOW); KETONES URINE NEGATIVE (NEGATIVE); LEUKOCYTE ESTERASE URINE NEGATIVE (NEGATIVE); NITRITE URINE NEGATIVE (NEGATIVE); OCCULT BLOOD URINE NEGATIVE (NEGATIVE); PROTEIN URINE NEGATIVE (NEGATIVE); SPECIFIC GRAVITY URINE 1.007 (1.005-1.030); UROBILINOGEN URINE 0.2 E.U./dL (0.2-1.0)
[2020-09-25] MEDS: VANCOMYCIN 1 G PREMIX 200 ML IV SCH ×2 (04:02→16:37)
[2020-09-25] MEDS: BLOOD SUGAR DIAGNOSTIC STRIP TEST SCH ×3 (06:44→17:10)
[2020-09-25] MEDS: INSULIN LISPRO 100 UNITS/ML SUBCUT SCH ×3 (06:44→17:40)
[2020-09-25] MEDS: ASPIRIN 81MG EC TABLET PO SCH (08:42)
[2020-09-25] MEDS: ENOXAPARIN 40MG/0.4ML SYR SUBCUT SCH (08:42)
[2020-09-25] MEDS: METOPROLOL TARTRATE 25MG TABLET PO SCH (08:42)
[2020-09-25] MEDS: DOCUSATE SODIUM 100MG CAPSULE PO SCH ×2 (08:42→16:38)
[2020-09-25] MEDS: FAMOTIDINE 20MG TABLET PO SCH (08:43)
[2020-09-25] MEDS: TICAGRELOR 90 MG TABLET PO SCH ×2 (08:43→16:38)
[2020-09-25] MEDS: AMLODIPINE 5MG TABLET PO SCH (08:43)
[2020-09-25] MEDS: LEVOFLOXACIN 500MG PREMIX 100 ML IV SCH (14:30)
[2020-09-25] MEDS ORDERED: METO25TA6 MT (16:45)
[2020-09-25] MEDS ORDERED: ASPI-1497 MT (16:45)
[2020-09-25] MEDS ORDERED: TICA90TA MT (16:45)
[2020-09-25] MEDS ORDERED: FAMO-135 PO (16:45)
[2020-09-25] MEDS ORDERED: DOCU-138 MT (16:45)
[2020-09-25] MEDS ORDERED: AMOX-424 MT (16:45)
[2020-09-25] MEDS ORDERED: HYDR-4001 MT (16:45)
[2020-09-25] MEDS ORDERED: LIP40 MT (16:45)
[2020-09-25] MEDS ORDERED: AMOXICILLIN/POTASSIUM CLAVULANATE 875/125MG TAB PO SCH (21:00)
[2020-09-26] MEDS ORDERED: LEVOFLOXACIN 500MG TABLET PO SCH (11:00)
== END 2020-09-25 19:30 | DRG 263 ==
LOC: ER 01:15 → 5WST 05:28 → EDBEDREQSVC 05:32 → EDBEDREQTM 05:32 → EDBEDREQ 05:32 → ENRESERV 07:37 → CVICU 09-17 10:40 → 8WST 09-23 00:46
PROVIDERS: ADMIT Internal Medicine; ATTEND Internal Medicine
PROC: 02HV33Z Insertion of Infusion Device into Superior Vena Cava, Percutaneous Approach (ICD-10-PCS; 2020-09-13)
PROC: B548ZZA Ultrasonography of Superior Vena Cava, Guidance (ICD-10-PCS; 2020-09-13)
PROC: 5A1223Z Performance of Cardiac Pacing, Continuous (ICD-10-PCS; 2020-09-17)
PROC: 0FT44ZZ Resection of Gallbladder, Percutaneous Endoscopic Approach (ICD-10-PCS; 2020-09-18)
PROC: 8E0W4CZ Robotic Assisted Procedure of Trunk Region, Percutaneous Endoscopic Approach (ICD-10-PCS; 2020-09-18)
PROC: 0DN84ZZ Release Small Intestine, Percutaneous Endoscopic Approach (ICD-10-PCS; 2020-09-18)
PROC: 0JH606Z Insertion of Pacemaker, Dual Chamber into Chest Subcutaneous Tissue and Fascia, Open Approach (ICD-10-PCS; principal; 2020-09-21)
PROC: 02H63JZ Insertion of Pacemaker Lead into Right Atrium, Percutaneous Approach (ICD-10-PCS; 2020-09-21)
PROC: 02HK3JZ Insertion of Pacemaker Lead into Right Ventricle, Percutaneous Approach (ICD-10-PCS; 2020-09-21)
PROC: B517YZZ Fluoroscopy of Left Subclavian Vein using Other Contrast (ICD-10-PCS; 2020-09-21)
DX: K80.64 Calculus of gallbladder and bile duct with chronic cholecystitis without obstruction (principal); I44.2 Atrioventricular block, complete; I50.33 Acute on chronic diastolic (congestive) heart failure; E87.1 Hypo-osmolality and hyponatremia; R55 Syncope and collapse; I11.0 Hypertensive heart disease with heart failure; D64.9 Anemia, unspecified; E78.5 Hyperlipidemia, unspecified; E87.6 Hypokalemia; I35.1 Nonrheumatic aortic (valve) insufficiency; I44.1 Atrioventricular block, second degree; I25.10 Atherosclerotic heart disease of native coronary artery without angina pectoris; R74.01 Elevation of levels of liver transaminase levels; I35.0 Nonrheumatic aortic (valve) stenosis; K66.0 Peritoneal adhesions (postprocedural) (postinfection); K82.8 Other specified diseases of gallbladder; R50.82 Postprocedural fever; Z20.822 Contact with and (suspected) exposure to COVID-19; I25.2 Old myocardial infarction; Z82.49 Family history of ischemic heart disease and other diseases of the circulatory system; Z83.3 Family history of diabetes mellitus; Z85.3 Personal history of malignant neoplasm of breast; Z90.10 Acquired absence of unspecified breast and nipple; Z90.710 Acquired absence of both cervix and uterus; Z95.5 Presence of coronary angioplasty implant and graft; Z98.82 Breast implant status; Z79.84 Long term (current) use of oral hypoglycemic drugs; Z79.899 Other long term (current) drug therapy; Z79.02 Long term (current) use of antithrombotics/antiplatelets; Z79.01 Long term (current) use of anticoagulants; R33.9 Retention of urine, unspecified; D72.829 Elevated white blood cell count, unspecified
CPT/HCPCS: 33208; 33210; 36415; 36600; 71045; 74176; 75820; 76705; 76937; 78227; 80048; 80053; 80061; 80320; 81003; 82248; 82375; 82805; 82962; 83036; 83605; 83735; 83880; 84100; 84145; 84439; 84443; 84484; 85025; 86850; 86900; 86920; 87426; 88304; 93005; 93306; 93970; 97116; 97162; 97164; 99285; A4565; A9537; C1725; C1785; C1893; C1898; C9113; J0330; J0690; J1100; J1170; J1200; J1265; J1580; J1644; J1650; J1815; J1956; J2060; J2175; J2250; J2270; J2405; J2543; J2704; J3010; J3370; J3480; J3490; J7040; J7042; J7060; Q9957; Q9967; A4315; G0480; J8499